=== PATIENT | female | born 1985 | race Caucasian/White ===

== ENCOUNTER 2025-01-15 11:30 | Inpatient (IN) | payer MEDICAID, SELFPAY ==
[2025-01-15] VITALS (52 sets, daily range): BP systolic 78–121; BP diastolic 45–81; PULSE 74–147; RESP 14–100; TEMP 36.4–37.4; O2SAT 87–100; BMI 22.6
--- NOTE | 2025-01-15 11:48 | PD.EDADULT ---
ED General RME/HPI General Chief complaint: Nausea/Vomiting/Diarrhea Stated complaint: WEAKNESS Time Seen by Provider: 01/15/25 11:39 Arrival date/time: 01/15/25 11:30 Related Data Previous Rx's ?Medication ?Instructions ?Recorded insulin lispro 100 unit/mL 15 unit (0.15 mL) subcut TID 30 07/17/22 subcutaneous pen (Admelog SoloStar days #15 mL U-100 Insulin lispro) pen needle, diabetic 32 gauge x #150 ea 07/17/2206/22 pen needle, diabetic 32 gauge x #100 ea 07/17/22 (Pen Needle) blood sugar diagnostic (Blood #50 ea 01/15/23 Glucose Test strips) blood-glucose meter (Blood Glucose #1 ea 01/15/23 Monitoring kit) blood-glucose sensor (FreeStyle #2 ea 01/15/23 Shannon 3 Sensor device) insulin glargine 100 unit/mL (3 25 unit (0.25 mL) subcut BID #15 mL 01/15/23 mL) subcutaneous pen (Basaglar KwikPen U-100 Insulin) insulin lispro 100 unit/mL 15 unit (0.15 mL) subcut TID #15 mL 01/15/23 subcutaneous pen (Admelog SoloStar U-100 Insulin lispro) lancets 28 gauge (Acti-Enrrique #100 ea 01/15/23 Lancets) pen needle, diabetic 29 gauge x #100 ea 01/15/23 1/2 (1st Tier Unifine Pentips) Allergies Allergy/AdvReac Type Severity Reaction Status Date / Time adhesive tape Allergy Severe Hives Verified 06/26/23 15:17 ED Exam Narrative Physical exam: Physical Exam: GENERAL: Awake, answering questions appropriately, appears disheveled and poor hygiene HEENT: NC/AT. Moist mucosa. PERRLA/EOMI. Poor dentition, yellow dark bilious vomiting noted in oropharynx and dried up around mouth. CARDIO: Heart RRR, no obvious murmurs, no JVD. PULM: No coughing or visible SOB. Lungs CTA B/L. GI: Abdomen soft, tender to palpation diffusely with some guarding but no rigidity noted. Borborygmi apparent SKIN/MSK/EXT: No wounds/discoloration/rashes/edema/amputations. +Pedal pulses present B/L. NEURO: Oriented x3, Moves extremities x4, no focal neurologic deficits noted. Course Quality Measures none Orders Category Date Time Status Bedside Blood Glucose NOW Care 01/15/25 11:34 Active COVID-19 Screening Questionnaire NOW Care 01/15/25 12:46 Active Adult Health Clinical Nurse Specialist STAT Care 01/15/25 11:31 Active Continuous Pulse Oximetry STAT Care 01/15/25 11:31 Completed DKA Protocol QSHIFT Care 01/15/25 12:40 Active Decision to Admit X1 Care 01/15/25 12:46 Completed Insert IV STAT Care 01/15/25 11:31 Active Intake and Output Routine Care 01/15/25 12:40 Ordered NPO STAT Care 01/15/25 11:31 Active Consult to Gastroenterology Stat Cons 01/15/25 11:32 Ordered Referral Registered Dietitian Routine Cons 01/15/25 12:40 Active ABG [Arterial Blood Gas] Stat Lab 01/15/25 12:08 Completed Ammonia Stat Lab 01/15/25 11:55 Completed Beta Hydroxybutyrate Stat Lab 01/15/25 11:55 Results CBC Stat Lab 01/15/25 11:55 Completed Comprehensive Metabolic Panel Stat Lab 01/15/25 11:55 Results Glycohemoglobin w (eAG) Stat Lab 01/15/25 12:40 Ordered HCG Qualitative,Urine Stat Lab 01/15/25 11:32 Ordered HCG Titer if Positive Stat Lab 01/15/25 11:55 Results Lipase Stat Lab 01/15/25 11:55 Results Magnesium Stat Lab 01/15/25 11:55 Results Partial Thromboplastin Time Stat Lab 01/15/25 11:55 Completed Prothrombin Time with INR Stat Lab 01/15/25 11:55 Completed Troponin I Stat Lab 01/15/25 11:55 Results Urinalysis, C/S if Indicated Stat Lab 01/15/25 11:32 Ordered Dextrose 5%-Lactated Ringers [D5-Lr] 1,000 ml Med 01/15/25 12:40 Active Pot Chl Additive [KCl Additive] 20 meq IV 250 mls/hr Dextrose 5%-Lactated Ringers [D5-Lr] 1,000 ml Med 01/15/25 12:40 Active Pot Chl Additive [KCl Additive] 40 meq IV 250 mls/hr Dextrose 5%-Lactated Ringers [D5-Lr] 1,000 ml Med 01/15/25 12:40 Active IV 250 mls/hr Dextrose 50% Syr [D50w Syringe Abboject] Med 01/15/25 12:40 Active 25 ml IV PRNMRX1 PRN Magnesium Sulfate 2 GM Ivpb [Magnesium Sulfate Ivpb] Med 01/15/25 12:40 Active 2 gm in 50 ml IV 25 mls/hr POT PHOS 15 mMol in NS 250 ML [Pot Phos 15 mMol in NS Med 01/15/25 12:40 Active 250 ml] 15 mmol in 250 ml IV PRN POTASSIUM CHL 10 mEq IVPB [Kcl Ivpb] Med 01/15/25 12:40 Active 10 meq in 100 ml IV 100 mls/hr POTASSIUM CHL 10 mEq IVPB [Kcl Ivpb] Med 01/15/25 12:40 Active 10 meq in 100 ml IV PRN Pantoprazole Inj [Protonix Inj] Med 01/15/25 11:31 Discontinued 40 mg IVP X1 ONE Pre-Mixed [Pre-mixed Bag] 1 bag Med 01/15/25 12:40 Active Insulin Reg 100 Units/100 ml [Myxredlin] 100 unit IV 0.1 unit/kg/hr Ringers Lactated 1000 ml [Lactated Ringers] 1,000 ml Med 01/15/25 12:40 Active Pot Chl Additive [KCl Additive] 20 meq IV 250 mls/hr Ringers Lactated 1000 ml [Lactated Ringers] 1,000 ml Med 01/15/25 12:40 Active Pot Chl Additive [KCl Additive] 40 meq IV 250 mls/hr Ringers Lactated 1000 ml [Lactated Ringers] 1,000 ml Med 01/15/25 12:40 Active IV 250 mls/hr Ringers Lactated 1000 ml [Lactated Ringers] 1,000 ml Med 01/15/25 11:33 Discontinued IV 999 mls/hr Ringers Lactated 1000 ml [Lactated Ringers] 1,000 ml Med 01/15/25 12:34 Active IV 999 mls/hr Ringers Lactated 1000 ml [Lactated Ringers] 1,000 ml Med 01/15/25 12:42 Active IV 999 mls/hr Sodium Bicarb 8.4% 50ml Vial* Med 01/15/25 12:30 Discontinued 50 meq IV X1 ONE Sodium Bicarb 8.4% SYR Med 01/15/25 12:40 Active 50 ml IV Q4HR PRN Sodium Chloride 0.9% 250 ml [Ns] 250 ml Med 01/15/25 12:40 Active Sod Phos Additive [NaPhos Additive] 15 mmol IV 62.5 mls/hr Oxygen Delivery STAT RT 01/15/25 11:31 Active Vital Signs Vital signs: Vital Signs Pulse Rate 125 H 01/15/25 11:31 Respiratory Rate 24 H 01/15/25 11:31 Discharge Plan Plan Patient Disposition: Admit Acute Care w/in Hospital Patient condition on transfer: Stable Prescriptions/Referrals Prescriptions/Med Rec: No Action (DME) pen needle, diabetic [Pen Needle] 32 gauge x 5/32 needle See Rx Instructions .Route Qty: 100 2RF Rx Instructions: As directed insulin lispro [Admelog SoloStar U-100 Insulin] 100 unit/mL insulin pen 15 unit subcut TID 30 Days Qty: 15 2RF Rx Instructions: 15 units with every meal 3 times daily (DME) pen needle, diabetic 32 gauge x 5/16 needle See Rx Instructions .Route Qty: 150 2RF Rx Instructions: As directed (DME) FreeStyle Shannon 3 Sensor Device See Rx Instructions .Route Qty: 2 0RF Rx Instructions: As directed (DME) blood-glucose meter [Blood Glucose Monitoring] Kit See Rx Instructions .Route Qty: 1 0RF Rx Instructions: As directed (DME) Blood Glucose Test Strip See Rx Instructions .Route Qty: 50 1RF Rx Instructions: As directed (DME) lancets [Acti-Enrrique Lancets] 28 gauge misc See Rx Instructions .Route Qty: 100 0RF Rx Instructions: As directed (DME) pen needle, diabetic [1st Tier Unifine Pentips] 29 gauge x 1/2 needle See Rx Instructions .Route Qty: 100 0RF Rx Instructions: As directed insulin glargine [Basaglar KwikPen U-100 Insulin] 100 unit/mL (3 mL) insulin pen 25 unit subcut BID Qty: 15 0RF insulin lispro [Admelog SoloStar U-100 Insulin] 100 unit/mL insulin pen 15 unit subcut TID Qty: 15 0RF Referrals: No Primary/Family,Physician [Primary Care Provider] - In 1 week Problem List Clinical Impression: DKA (diabetic ketoacidoses) Patient/Caregiver Discharge Instructions Print Language: Sinhala Stand Alone Forms: [employer] Info., Patient Portal Info Letter MDM Narrative MDM hospital course (for use when minimal MDM required): HPI: Past medical history of poorly controlled type 2 diabetes on insulin with multiple admissions in the past for diabetic ketoacidosis, multiple gestations with multiple miscarriages presenting to the ED on 01/15 with confusion and dark bilious vomiting. History largely obtained from EMS which reported that the patient was at home with and apparently started having increased confusion with dark bilious vomiting. She is unsure exactly if she is a type I or type II diabetic but does state that she uses insulin daily. She states that the vomiting started earlier today and have not stopped; she has vomited around 5 or 6 times. She denies having any liver disease at this time history difficult to obtain as she is actively nauseous with vomiting spells. On examination please refer to the physical exam above; patient presented normotensive 110/68, tachycardic with a heart rate of 125, respiratory rate of 24, afebrile satting 100 on room air. Labs are pending at this time. #Diabetic ketoacidosis #Probable upper GI bleed, hemoglobin stable IV Protonix 40 2 large-bore IVs with 2 L of LR started; 3L ordered Patient appears to be in DKA based on lab findings; pH 7.14 - one amp of Bicarb given Insulin gtt started with DKA protocol Patient will be n.p.o. Will contact GI for possible need for endoscopy [facility] attending made aware and has accepted the patient Patient seen and assessed with attending Dr. London Yoo, DO PGY-2 Internal Medicine - [facility] Medication Administration(s) Medication Administration History Dextrose (Dextrose 50%-Water Inj 50 Ml Syringe) 25 ml IV PRNMRX1 PRN PRN Reason: Blood Sugar - Low Lactated Ringer's (Lactated Ringers) 1,000 mls @ 999 mls/hr IV .Q1H1M ONE Stop: 01/15/25 13:34 Last Admin: 01/15/25 12:05 Dose: 999 mls/hr Documented By: ER Potassium Chloride 20 meq/ (Dextrose/Lactated Ringer's) 1,010 mls @ 250 mls/hr IV .Q4H3M PRN PRN Reason: K LEVEL 3.3 TO 5.3 mM/L Stop: 02/14/25 12:39 Potassium Chloride 40 meq/ (Dextrose/Lactated Ringer's) 1,020 mls @ 250 mls/hr IV .Q4H5M PRN PRN Reason: K LEVEL < 3.3mM/L Stop: 02/14/25 12:39 Potassium Chloride (Kcl Ivpb) 10 meq in 100 mls @ 100 mls/hr IV .Q1H PRN PRN Reason: IF POTASSIUM LESS THAN 3.3 Stop: 02/14/25 12:39 Magnesium Sulfate (Magnesium Sulfate Ivpb) 2 gm in 50 mls @ 25 mls/hr IV .Q2H PRN PRN Reason: PER DKA PROTOCOL Stop: 02/14/25 12:39 Insulin Human Regular 100 unit (/ IV Miscellaneous Supplies) 100 mls @ 6.35 mls/hr IV .[id number] PRN; Protocol PRN Reason: PER PROTOCOL Stop: 02/14/25 12:39 Dextrose/Lactated Ringer's (D5-Lr) 1,000 mls @ 250 mls/hr IV .Q4H PRN PRN Reason: PER PROTOCOL Stop: 02/14/25 12:39 Lactated Ringer's (Lactated Ringers) 1,000 mls @ 250 mls/hr IV .Q4H PRN PRN Reason: PER PROTOCOL Stop: 01/16/25 12:39 Potassium Chloride 20 meq/ (Lactated Ringer's) 1,010 mls @ 250 mls/hr IV .Q4H3M PRN PRN Reason: K LEVEL 3.3 TO 5.3mM/L Stop: 02/14/25 12:39 Potassium Chloride 40 meq/ (Lactated Ringer's) 1,020 mls @ 250 mls/hr IV .Q4H5M PRN PRN Reason: K LEVEL < 3.3 mM/L Stop: 02/14/25 12:39 Potassium Chloride (Kcl Ivpb) 10 meq in 100 mls @ 50 mls/hr IV PRN PRN PRN Reason: K LEVEL 3.3 to 5.3 & BG > 200 Stop: 02/14/25 12:39 Potassium Phosphate (Pot Phos 15 Mmol In Ns 250 Ml) 15 mmol in 250 mls @ 62.5 mls/hr IV PRN PRN PRN Reason: Phosphate <= 1mg/dL Stop: 02/14/25 12:39 Sodium Phosphate 15 mmol/ (Sodium Chloride) 255 mls @ 62.5 mls/hr IV .Q4H5M PRN PRN Reason: Phosphate <= 1mg/dL and K> than 5.3 Stop: 02/14/25 12:39 Lactated Ringer's (Lactated Ringers) 1,000 mls @ 999 mls/hr IV .Q1H1M ONE Stop: 01/15/25 13:42 Sodium Bicarbonate (Sodium Bicarb Inj 8.4% Syr 50 Ml Syringe) 50 ml IV Q4HR PRN PRN Reason: For ph <= to 7.0 Stop: 02/14/25 12:39 Discontinued Medications Lactated Ringer's (Lactated Ringers) 1,000 mls @ 999 mls/hr IV .Q1H1M ONE Stop: 01/15/25 12:33 Last Admin: 01/15/25 12:05 Dose: 999 mls/hr Documented By: ER Pantoprazole Sodium (Pantoprazole Inj 40 Mg Vial) 40 mg IVP X1 ONE Stop: 01/15/25 11:32 Last Admin: 01/15/25 12:02 Dose: 40 mg Documented By: ER Sodium Bicarbonate (Sodium Bicarb Inj 8.4% 1 Meq/Ml 50 Ml Vial) 50 meq IV X1 ONE Stop: 01/15/25 12:31
--- NOTE | 2025-01-15 11:56 | PC.NURSE ---
Patient BIBA from home stating that she woke with N/V. Patient is type 1 Dm and FSBS read [facility], and in ED. Placed on rn cardiac rehab, ST 125bpm. Patient actively vomiting at this time. Patient is A&O X4 following directions at this time.
[2025-01-15 12:04] LABS: Basophils # (Auto) 0.0 Thou/mm3 (0.0-0.2); Basophils % (Auto) 0 % (0-2.5); Eosinophils # (Auto) 0.0 Thou/mm3 (0.0-0.5); Eosinophils % (Auto) 0 % (0-10); Hematocrit 43.6 % (36.0-46.0); Hemoglobin 14.2 g/dL (12.0-16.0); Immature Granulocytes Auto 0.05 Thou/mm3 (0.00-0.00); Lymphocytes # (Auto) 1.2 Thou/mm3 (1.0-4.8); Lymphocytes % (Auto) 10 % (10-50); Mean Corpuscular HGB Conc 32.6 g/dl (31.0-37.0); Mean Corpuscular Hemoglobin 30.5 pg (25.0-35.0); Mean Corpuscular Volume 94 fL (80-100); Monocytes # (Auto) 0.3 Thou/mm3 (0.0-0.8); Monocytes % (Auto) 2 % (0-12); Neutrophils # (Auto) 10.1 Thou/mm3 (1.8-7.7); Neutrophils % (Auto) 86 % (37-80); Nucleated Red Blood Cell # 0.00 Thou/mm3 (0.00-0.00); Nucleated Red Blood Cell % 0 /100 WBC (0); Platelet Count 330 Thou/mm3 (140-440); RDW Standard Deviation 45.6 fL (36.4-46.3); Red Blood Count 4.65 Miln/mm3 (4.00-5.20); White Blood Count 11.7 Thou/mm3 (3.6-11.0)
[2025-01-15] MEDS: RINGERS LACTATED 1000 ML 1,000 ML 999 ML IV ×5 (12:05→21:14)
[2025-01-15 12:10] LABS: Beta Hydroxybutyrate 5.4 mmol/L (<0.6)
[2025-01-15 12:17] LABS: Base Excess -22 (-3-3); HCO3 5 mEq/L (20-26); Inspired Oxygen, FIO2 21 %; O2 Saturation 98 % (91-98); PCO2 16 mmHg (32.0-48.0); PO2 126 mmHg (83-108)
[2025-01-15 12:23] LABS: INR 0.9 (0.9-1.3); Partial Thromboplastin Time 22.0 Seconds (22.0-36.0); Prothrombin Time 10.0 Seconds (9.0-12.2)
[2025-01-15 12:27] LABS: Allen Test Performed/OK; Puncture Site Right Radial
[2025-01-15 12:28] LABS: pH, Arterial 7.14 (7.35-7.45)
[2025-01-15 12:32] LABS: Ammonia 12 uMol/L (11-32)
[2025-01-15 12:34] LABS: Alanine Aminotransferase 20 U/L (10-49); Albumin, Serum 4.3 gm/dL (3.5-5.0); Albumin/Globulin Ratio 1.3 (1.2-2.2); Alkaline Phosphatase 176 U/L (46-116); Anion Gap 30 (7-16); Aspartate Amino Transferase 21 U/L (0-34); BUN/Creatinine Ratio 15 Ratio (12-20); Bilirubin,Total 0.5 mg/dL (0.3-1.2); Blood Urea Nitrogen 25 mg/dL (9-23); Calcium 9.2 mg/dL (8.3-10.6); Calcium (Corrected) 9.2 mg/dL (8.5-10.1); Chloride 94 mMol/L (98-107); Creatinine (Component) 1.7 mg/dL (0.6-1.3); Estimated Creatinine Clearance 41.6 mL/min (>60); Globulin 3.3 gm/dL (2.3-3.5); Lipase 27 U/L (12-53); Magnesium 2.2 mg/dL (1.6-2.6); Potassium 5.6 mMol/L (3.4-5.1); Sodium 134 mMol/L (136-145); Total Protein 7.6 gm/dL (5.7-8.2); Troponin I < 0.002 ng/mL (0.0-0.045); eGFR 39 See Note
[2025-01-15 12:36] LABS: Carbon Dioxide < 10.0 mMol/L (20.0-31.0)
[2025-01-15 12:44] LABS: Osmolality,Calculated 307 (275-295)
[2025-01-15 13:02] LABS: Glucose 734 mg/dL (74-106)
[2025-01-15 13:16] LABS: Glucose Estimated Average 326 mg/dL (80-131); Hemoglobin A1C 13.0 % Hgb (4.8-6.0)
[2025-01-15 13:17] LABS: HCG Titer if Positive Negative
[2025-01-15] MEDS: INSULIN REG 100 UNITS/100 ML 100 UNIT in PRE-MIXED 1 BAG 6.35 UNIT IV (13:23)
--- NOTE | 2025-01-15 13:26 | ESHP_ITS ---
<Statement entered by Lilly Mclaughlin MD - 01/15/25 18:29> I have reviewed the note and agree with the resident's assessment & plan with exceptions as below. I have personally reviewed labs, imaging, home meds/prior records, examined the patient, formulated and discussed management plan with the IM team. Neurology: #Acute Encephalopathy DDx: Metabolic (related to DKA), infectious, Dx: CMP, ABG Rx: Treat underlying metabolic issue (See Endo Section), serial CMP, ABG RRX: Consider Head CT if patient's condition does not improve or worsens Cardiology: #Sinus Tachycardia DDx: Likely related to pain and DKA Dx: EKG (Stable) and Troponin (negative) Rx: Treat underlying problem (See Endo and Renal) RRX: If patient's condition does not improve Pulmonary: #Tachypnea, 2/2 metabolic acidosis DDx: Compensation for metabolic acidosis Dx: Vitals, physical exam Rx: Treat underlying problem (See Endo and Renal) RRX: If patient's condition does not improve Gastrointestinal: #Nausea 2/2 DKA Plan: PRN Zofran Nephrology: #HAGMA #Metabolic acidosis with respiratory alkalosis DDx: DKA, Lactic acidosis AG 30, likely multifactorial Winter's Formula: 14-18 expected CO2; acutal CO2 16 -> within range Delta Delta: (30-12)/(24-5)= 0.94 -> HAGMA Dx: CMP, ABG (pH 7.14), U/A, A1c (13), Beta-Hydroxybutyrate (5.4) Rx: Insulin Drip 0.1 unit/kg, serial renal panels with phosphorous, glucose q1h checks RRX: If not enough insulin not given or gap doesn't close #Lactic acidosis type A vs B DDx: Infectious, Type A/B (Hypoxia, Medications, DKA) Dx: CMP, Lactate, CXR, U/A, UDS Rx: IV Lactated Ringer Boluses, Trend Lactic Acid RRX: If we do not find source of lactic acidosis #ADEEL DDx: Likely prerenal, however can be intrinsic or post renal Dx: CMP, U/A Rx: IV Lactated Ringer Boluses, Trend CMP RRX: If we underlying problem is not fixed Genitourinary: Stable Hematology: #Leukocytosis Likely reactive or related to DKA However, infection cannot be ruled out at this time. Plan: Trend CBC Endocrine: #DKA DDx: Hyperglycemia, HHS A1c 13; Unsure if type I or type II, however is insulin dependent Dx: A1c (13), CMP, ABG Rx:Insulin Drip 0.1 unit/kg, serial renal panels with phosphorous, glucose q1h checks RRX: If not insulin is given Infectious Disease: Stable at this time, however pt could have underlying infection Plan: UDS, U/A w/culture if indicated, CXR Lilly Mclaughlin, PGY-2 Internal Medicine Documentation for date of: 01/15/25 HPI History of Present Illness Chief complaint: DKA, Adominal pain and nausea and vomiting History of present illness: Ms. Dominguez is a 39 year old woman with a pmh of T1 v T2 DM, that was diagnosed ~7 years ago, on insulin, who was BIBA from home afte 1-2 days of not feeling well . She states that she woke up today and she had nausea and vomiting that was billeous and nonbloody, no coffee grounds. patient is slightly encephalopathic, and is a poor historian, no family at bedside to provide collateral history She reports not taking her insulin because she was feeling ill. PMH: Insulin depended DM, on insulin at home Surgical: C section, Hernia repair, Tubal ligation Social Hx: Lives in [place] with her partner ana ho and their children. She denies any etoh use or tobacco use or recreational drug use ED course: given insulin drip, and 2L LR, and pantoprazole VS: afebrile, HR 125, bp 110/68, satting 100 on RA Labs notable for wbc 11.7, Hgb stable, coags wnl, abg ph 7.14, but531, hco3<10, trop wnl, lipase wnl, Cr 1.7, K 5.6, glucose 734, Na corrected 144, A1c 13, beta hydroxy butrate 5.4, LA 4.1, pending UA and U tox, Exam Vital Signs Temp Pulse Resp BP Pulse Ox O2 Del Method 97.9 F 126 H 25 H 110/68 100 Room Air 01/15/25 11:38 01/15/25 11:38 01/15/25 11:38 01/15/25 11:38 01/15/25 11:38 01/15/25 11:38 Narrative Exam somnlent yet arousable to voice and touch, alert and oriented x3, discheveled, in moderate distress PEERL, Mouth with poor dentition, and teeth stained with billeous emesis on teeth, mucus membranes dry heart, sinus tachycardia, no murmors on auscultation lungs, expiratory wheezing, and inspiratory ronchous sounds. no stridor, tachypnic, satting well on room air, abd soft nontender, non distended, + bowel sounds, and infraumbilical well healed surgical incision and laproscopic incision Extremities, cold, pulses palpable Results: Labs 01/15/25 11:55 01/15/25 15:35 Labs: Short CBC 01/15/25 Range/Units 11:55 WBC 11.7 H (3.6-11.0) Thou/mm3 Hgb 14.2 (12.0-16.0) g/dL Hct 43.6 (36.0-46.0) % Plt Count 330 (140-440) Thou/mm3 BMP 01/15/25 11:55 Sodium 134 L Potassium 5.6 H Chloride 94 L Carbon Dioxide < 10.0 L* BUN 25 H Creatinine 1.7 H Glucose 734 H* Calcium 9.2 Cardiac Enzymes 01/15/25 Range/Units 11:55 Troponin I < 0.002 (0.0-0.045) ng/mL Liver Function 01/15/25 Range/Units 11:55 Total Bilirubin 0.5 (0.3-1.2) mg/dL AST 21 (0-34) U/L ALT 20 (10-49) U/L Alkaline Phosphatase 176 H (46-116) U/L Albumin 4.3 (3.5-5.0) gm/dL ABG Interpretation ABG results: 01/15/25 12:08 ABG pH 7.14 L* ABG pCO2 16 L* ABG pO2 126 H ABG HCO3 5 L* ABG O2 Saturation 98 ABG Base Excess -22 L Quality Measures Quality Measures VTE prophylaxis Medications Home Medications and Allergies Allergies Allergy/AdvReac Type Severity Reaction Status Date / Time adhesive tape Allergy Severe Hives Verified 06/26/23 15:17 Visit Medications Dextrose (Dextrose 50%-Water Inj 50 Ml Syringe) 25 ml IV PRNMRX1 PRN PRN Reason: Blood Sugar - Low Lactated Ringer's (Lactated Ringers) 1,000 mls @ 999 mls/hr IV .Q1H1M ONE Stop: 01/15/25 13:34 Last Admin: 01/15/25 12:05 Dose: 999 mls/hr Potassium Chloride 20 meq/ (Dextrose/Lactated Ringer's) 1,010 mls @ 250 mls/hr IV .Q4H3M PRN PRN Reason: K LEVEL 3.3 TO 5.3 mM/L Stop: 02/14/25 12:39 Potassium Chloride 40 meq/ (Dextrose/Lactated Ringer's) 1,020 mls @ 250 mls/hr IV .Q4H5M PRN PRN Reason: K LEVEL < 3.3mM/L Stop: 02/14/25 12:39 Potassium Chloride (Kcl Ivpb) 10 meq in 100 mls @ 100 mls/hr IV .Q1H PRN PRN Reason: IF POTASSIUM LESS THAN 3.3 Stop: 02/14/25 12:39 Magnesium Sulfate (Magnesium Sulfate Ivpb) 2 gm in 50 mls @ 25 mls/hr IV .Q2H PRN PRN Reason: PER DKA PROTOCOL Stop: 02/14/25 12:39 Insulin Human Regular 100 unit (/ IV Miscellaneous Supplies) 100 mls @ 6.35 mls/hr IV .[id number] PRN; Protocol PRN Reason: PER PROTOCOL Stop: 02/14/25 12:39 Dextrose/Lactated Ringer's (D5-Lr) 1,000 mls @ 250 mls/hr IV .Q4H PRN PRN Reason: PER PROTOCOL Stop: 02/14/25 12:39 Lactated Ringer's (Lactated Ringers) 1,000 mls @ 250 mls/hr IV .Q4H PRN PRN Reason: PER PROTOCOL Stop: 01/16/25 12:39 Potassium Chloride 20 meq/ (Lactated Ringer's) 1,010 mls @ 250 mls/hr IV .Q4H3M PRN PRN Reason: K LEVEL 3.3 TO 5.3mM/L Stop: 02/14/25 12:39 Potassium Chloride 40 meq/ (Lactated Ringer's) 1,020 mls @ 250 mls/hr IV .Q4H5M PRN PRN Reason: K LEVEL < 3.3 mM/L Stop: 02/14/25 12:39 Potassium Chloride (Kcl Ivpb) 10 meq in 100 mls @ 50 mls/hr IV PRN PRN PRN Reason: K LEVEL 3.3 to 5.3 & BG > 200 Stop: 02/14/25 12:39 Potassium Phosphate (Pot Phos 15 Mmol In Ns 250 Ml) 15 mmol in 250 mls @ 62.5 mls/hr IV PRN PRN PRN Reason: Phosphate <= 1mg/dL Stop: 02/14/25 12:39 Sodium Phosphate 15 mmol/ (Sodium Chloride) 255 mls @ 62.5 mls/hr IV .Q4H5M PRN PRN Reason: Phosphate <= 1mg/dL and K> than 5.3 Stop: 02/14/25 12:39 Lactated Ringer's (Lactated Ringers) 1,000 mls @ 999 mls/hr IV .Q1H1M ONE Stop: 01/15/25 13:42 Sodium Bicarbonate (Sodium Bicarb Inj 8.4% Syr 50 Ml Syringe) 50 ml IV Q4HR PRN PRN Reason: For ph <= to 7.0 Stop: 02/14/25 12:39 Discontinued Medications Lactated Ringer's (Lactated Ringers) 1,000 mls @ 999 mls/hr IV .Q1H1M ONE Stop: 01/15/25 12:33 Last Admin: 01/15/25 12:05 Dose: 999 mls/hr Pantoprazole Sodium (Pantoprazole Inj 40 Mg Vial) 40 mg IVP X1 ONE Stop: 01/15/25 11:32 Last Admin: 01/15/25 12:02 Dose: 40 mg Sodium Bicarbonate (Sodium Bicarb Inj 8.4% 1 Meq/Ml 50 Ml Vial) 50 meq IV X1 ONE Stop: 01/15/25 12:31 Last Admin: 01/15/25 13:21 Dose: Not Given Assessment & Plan Plan Ms. Dominguez is a 39 year old woman with a history of insulin dependent DM, poorly controlled who was BIBA for acute encephalopathy and elevated blood glucose to 700s, found to have elevated beta hydroxy butrate and LA, admtited to the icu for managment of DKA Neurology: #Acute Encephalopathy DDx: Metabolic (related to DKA), infectious, Dx: CMP, ABG Rx: Treat underlying metabolic issue (See Endo Section), serial CMP, ABG RRX: Consider Head CT if patient's condition does not improve or worsens Cardiology: #Sinus Tachycardia DDx: Likely related to pain and DKA Dx: EKG (Stable) and Troponin (negative) Rx: Treat underlying problem (See Endo and Renal) RRX: If patient's condition does not improve Pulmonary: #Tachypnea, 2/2 metabolic acidosis DDx: Compensation for metabolic acidosis Dx: Vitals, physical exam Rx: Treat underlying problem (See Endo and Renal) RRX: If patient's condition does not improve ?Aspiration PNA vs pneumonitis DDx: in setting of lethargy and encephalopathy likely 2/2 dka, patient with persistent emesis, could have aspirated. Dx: Vitals, physical exam, CBC, serial CXR Rx: consider abx RRX: If patient's condition does not improve Gastrointestinal: #Nausea + emesis 2/2 DKA Plan: PRN John Nephrology: #NICOLETTEMA #Metabolic acidosis with respiratory alkalosis DDx: DKA, Lactic acidosis ( consider GOLD CORONEL) Ab.14, 16 AG 30 Winter's Formula: (1.5*Hco3)+ 8)= 1.5*5)+8= expected pco2 +/-2 [13.5-17.5] expected CO2; acutal CO2 16 -> within range Delta Delta: (30-12)/(24-5)= 0.94 -> pure metabolic acidosis Dx: CMP, ABG (pH 7.14), U/A, A1c (13), Beta-Hydroxybutyrate (5.4), Rx: Insulin Drip 0.1 unit/kg, serial renal panels with phosphorous q4hr , glucose q1h checks RRX: If not enough insulin not given or gap doesn't close #Lactic acidosis type A vs B DDx: Infectious, Type A/B (Hypoxia, Medications, DKA) Dx: CMP, Lactate, CXR, U/A, UDS Rx: IV Lactated Ringer Boluses, Trend Lactic Acid RRX: If we do not find source of lactic acidosis #ADEEL DDx: Likely prerenal, in setting of poor po intake, and GI lossis 2/2 emesis Dx: CMP, U/A Rx: IV Lactated Ringer Boluses, Trend CMP RRX: If we underlying problem is not fixed Genitourinary: Stable, betancourt placed pending utox, and UA Hematology: #Leukocytosis Likely reactive or related to DKA Plan: Trend CBC Endocrine: #DKA DDx: Hyperglycemia, HHS (blood glucose >600) A1c 13; Unsure if type I or type II, however is insulin dependent Dx: A1c (13), CMP, ABG Rx:Insulin Drip 0.1 unit/kg, serial renal panels with phosphorous, glucose q1h checks RRX: If not insulin is given Infectious Disease: Stable at this time ICU Health maintenance: Dispo: admitted to the ICU for managment of DKA Diet: NPO DVT ppx: Heparin 5000 BID GI ppx: not indicated IV lines: PIV Arterial line: none Betancourt: yes Code status: Full Case disclosed with my senior resident Dr. Mclaughlin and my Attending Dr. Orlando Cote MD PGY1
--- NOTE | 2025-01-15 13:48 | XR_ITS ---
January 15, 2025, 1414 hours, comparison June 26, 2023 INDICATION: Shortness of breath today. FINDINGS: Normal heart size Lungs are clear. Osseous structures are intact IMPRESSION: No active disease
[2025-01-15 13:49] LABS: Lactate (Lactic Acid) 4.1 mMol/L (0.4-2.0)
--- NOTE | 2025-01-15 14:06 | PD.INTPROG ---
Documentation for date of: 01/15/25 Subjective Subjective Interval history: This is a 39-year-old female who is brought into the ER today by EMS for general malaise and intractable nausea and vomiting. The patient states that she started to become ill yesterday. Of note the patient is a very poor historian. Apparently prior to yesterday she was feeling well. She did not take her insulin today since she was unable to tolerate p.o. She began with nausea and vomiting yesterday evening and continued this morning. There is question of hematemesis per the ER. On arrival to the ED she was found to be tachypneic, hypotensive, tachycardic and agitated. A peripheral line was established and labs were obtained. Labs were significant for a metabolic acidosis and an anion gap of 30. The patient has a history of diabetes. The patient's beta hydroxy was found to be elevated and the ICU was contacted for admission for probable DKA. The patient herself complains of abdominal pain and right shoulder pain. It appears that the abdominal pain is related to her nausea vomiting and retching. In the ER she has received 2 L of IV fluids. A 3rd L is ordered along with an insulin drip. Critical Care Note Critical care time (min.): 50 Exam Vital Signs Temp Pulse Resp BP Pulse Ox O2 Del Method 97.6 F 126 H 21 H 99/61 100 Room Air 01/15/25 13:38 01/15/25 13:38 01/15/25 13:38 01/15/25 13:38 01/15/25 13:38 01/15/25 13:38 Narrative Exam General-unkempt in appearance, awake, agitated, restless, normal body habitus HEENT-normocephalic, atraumatic, sclera icteric, pupils are equal reactive responding to light, EOMI, oral mucosa is extremely dry, poor dentition, dry brown oral debris present Chest-lungs clear to auscultation bilaterally, heart regular rhythmic, no bruits or murmurs auscultated, increased work of breathing, pain on palpation of the right chest wall, no visible lesions seen Abdomen-flat, soft, nontender, no rebound, no guarding, bowel sounds present, infraumbilical well-healed surgical scar Extremities-no edema, no mottling, pulses palpable, feet and hands are cool to touch, no focal neurological deficits Physical Exam Completion Physical Exam Complete?: Yes 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 Labs 01/16/25 02:14 01/16/25 06:25 Labs: Laboratory Results - last 24 hr 01/15/25 01/15/25 01/15/25 11:55 12:08 13:27 WBC 11.7 H RBC 4.65 Hgb 14.2 Hct 43.6 MCV 94 MCH 30.5 MCHC 32.6 RDW Std Deviation 45.6 Plt Count 330 Neut % (Auto) 86 H Lymph % (Auto) 10 [place] % (Auto) 2 Eos % (Auto) 0 Baso % (Auto) 0 Neut # (Auto) 10.1 H Lymph # (Auto) 1.2 [place] # (Auto) 0.3 Eos # (Auto) 0.0 Baso # (Auto) 0.0 Immature Gran # (Auto) 0.05 H Absolute Nucleated RBC 0.00 Immature Gran % 0 Nucleated RBC % 0 PT 10.0 INR 0.9 APTT 22.0 Puncture Site Right Radial ABG pH 7.14 L* ABG pCO2 16 L* ABG pO2 126 H ABG HCO3 5 L* ABG O2 Saturation 98 ABG Base Excess -22 L FiO2 21 Sodium 134 L Potassium 5.6 H Chloride 94 L Carbon Dioxide < 10.0 L* Anion Gap 30 H BUN 25 H Creatinine 1.7 H Estim Creat Clear Calc 41.6 L eGFR 39 L BUN/Creatinine Ratio 15 Glucose 734 H* Estimated Ave Glu mg/dL 326 H Hemoglobin A1c 13.0 H Calculated Osmolality 307 H Lactic Acid 4.1 H* Calcium 9.2 Corrected Calcium 9.2 Magnesium 2.2 Total Bilirubin 0.5 AST 21 ALT 20 Alkaline Phosphatase 176 H Ammonia 12 Troponin I < 0.002 Total Protein 7.6 Albumin 4.3 Globulin 3.3 Albumin/Globulin Ratio 1.3 Lipase 27 Beta-Hydroxybutyrate/Acetoacetate 5.4 H HCG (Qual) Negative Assessment & Plan Additional Assessment Additional Assessment: In summary this is a 39-year-old female admitted to the ICU for 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 Follow-up on chest x-ray Renal Pseudohyponatremia-in the setting of hyperglycemia with a glucose above 700 Hyperkalemia-anticipate improvement with IV fluids and insulin drip Anion gap metabolic acidosis-patient's anion gap is 30 and a delta delta suggest that this is a pure anion gap metabolic acidosis. Her ABG shows a pH of 7.14 with a pCO2 of 16. Per Powell formula she has appropriate respiratory compensation for her metabolic acidosis. Patient's beta hydroxy is elevated at 5.4 however this does not completely explain the patient's anion gap of 30. It is likely secondary to both her DKA as well as a lactic acidosis. She also does have an ADEEL which may be a small contribution. Acute kidney injury-likely prerenal in nature and secondary to volume depletion. Provide IV fluids and monitor I's and O's, avoid nephrotoxins. GI Intractable nausea and vomiting-as needed Zofran and n.p.o. for now Endo DKA-start on DKA protocol with labs every 4 hours, insulin drip and IV fluids. Once anion gap is closed x 2 can transition to subcutaneous insulin. Patient has history of poor compliance Heme Leukocytosis-likely reactive in nature DVT prophylaxis-Lovenox ID Stable case d/w ICU team and ER Labs, imaging records reviewed Approximately 50 critical care minutes required evaluation, exam, review, dimension, discussion formulation of plan of care this critically ill patient with severe metabolic acidosis secondary to DKA at high risk for further and ongoing decompensation Provider Notation Provider Notation: Although this document has been carefully reviewed, there may still be some phonetic and other typographical errors. These errors are purely grammatical due to imperfections in the software program and should not be construed in any way to compromise the substance of the patient's medical care during this visit. Thank you for the opportunity and privilege in assisting you with this patient's care and management.
[2025-01-15] MEDS: RINGERS LACTATED 1000 ML 1,000 ML 250 ML IV (15:36)
[2025-01-15 16:20] LABS: Chloride,Urine Random < 20.0 mMol/L (55.0-125.0); Potassium,Urine Random 28 mMol/L (12-62); Sodium,Urine Random 78.4 mMol/L (20.0-110.0)
[2025-01-15 16:31] LABS: Reflex Lactate? Y
[2025-01-15 16:38] LABS: Albumin, Serum 4.0 gm/dL (3.5-5.0); Anion Gap 28 (7-16); BUN/Creatinine Ratio 13 Ratio (12-20); Blood Urea Nitrogen 20 mg/dL (9-23); Calcium 8.6 mg/dL (8.3-10.6); Calcium (Corrected) 8.6 mg/dL (8.5-10.1); Chloride 105 mMol/L (98-107); Creatinine (Component) 1.5 mg/dL (0.6-1.3); Estimated Creatinine Clearance 47.1 mL/min (>60); Osmolality,Calculated 305 (275-295); Phosphorous 3.9 mg/dL (2.4-5.1); Potassium 4.4 mMol/L (3.4-5.1); Sodium 143 mMol/L (136-145); eGFR 45 See Note
[2025-01-15 16:43] LABS: Carbon Dioxide < 10.0 mMol/L (20.0-31.0); Glucose 422 mg/dL (74-106)
[2025-01-15 16:44] LABS: Lactic Acid, 3 HR 4.1 mMol/L (0.4-2.0)
[2025-01-15] MEDS: POT CHL ADDITIVE 20 MEQ in RINGERS LACTATED 1000 ML 1,000 ML 250 MEQ IV (17:49)
[2025-01-15 17:56] LABS: Collection Type, Urine Catheter
[2025-01-15 18:05] LABS: Bilirubin,Urine 1+ (Negative); Blood,Urine Trace (Negative); Clarity,Urine Clear (Clear/Hazy); Color,Urine Lt-Yellow (Lt Yel-Yel); Culture Indicated,Urine Not Indicated; Glucose, Urine 3+ (Negative); Granular Casts,Urine < 1 /hpf (0-1); Hyaline Casts,Urine < 1 /hpf (0-1); Ketones,Urine 4+ (Negative); Leukocyte Esterase,Urine Negative (Negative); Nitrite,Urine Negative (Negative); PH,Urine 5.5 (5.0-7.0); Protein,Urine Trace (Neg - Trace); RBC,Urine 3 /hpf (0-3); Specific Gravity,Urine 1.022 (1.001-1.035); Squamous Epithelial Cell,Urine 1 /hpf (0-5); Urobilinogen,Urine 4.0 mg/dL (0.0-1.0); WBC,Urine 2 /hpf (0-5)
[2025-01-15 18:07] LABS: HCG Qualitative,Urine Negative
--- NOTE | 2025-01-15 18:18 | PC.NURSE ---
confirmed with dr wheeler current labs ordered, per MD VBG per protocol not needed
[2025-01-15 18:20] LABS: Amphetamine/Methamp Scrn,U Negative (Negative); Barbiturate Screen,Urine Negative (Negative); Benzodiazepines Screen,Urine Negative (Negative); Benzoylecgonine Screen, Ur Negative (Negative); Fentanyl Screen,Urine Negative (Negative); Opiate Screen,Urine Negative (Negative); THC Screen,Urine Negative (Negative)
[2025-01-15 18:22] LABS: Magnesium 2.0 mg/dL (1.6-2.6)
[2025-01-15] MEDS: POT CHL ADDITIVE 20 MEQ in DEXTROSE 5%-LACTATED RINGERS 1,000 ML 250 MEQ IV ×2 (18:32→22:43)
[2025-01-15 18:44] LABS: Lactate (Lactic Acid) 3.9 mMol/L (0.4-2.0)
[2025-01-15 19:14] LABS: Albumin, Serum 3.8 gm/dL (3.5-5.0); Anion Gap 25 (7-16); BUN/Creatinine Ratio 20 Ratio (12-20); Blood Urea Nitrogen 24 mg/dL (9-23); Calcium 9.0 mg/dL (8.3-10.6); Calcium (Corrected) 9.2 mg/dL (8.5-10.1); Chloride 108 mMol/L (98-107); Creatinine (Component) 1.2 mg/dL (0.6-1.3); Estimated Creatinine Clearance 58.9 mL/min (>60); Glucose 169 mg/dL (74-106); Osmolality,Calculated 298 (275-295); Phosphorous 2.0 mg/dL (2.4-5.1); Potassium 4.6 mMol/L (3.4-5.1); Sodium 146 mMol/L (136-145); eGFR 59 See Note
--- NOTE | 2025-01-15 19:25 | ESCONSULT_ITS ---
HPI Data of Consult Requesting Physician: Naila Perry MD Primary Care Provider: Physician No Primary/Family Consult Narrative Reason for consult: Multiple episodes of dark vomiting History of present illness: 39-year-old female brought into the hospital with multiple episodes of dark vomiting and confusion found to be in DKA with a CO2 less than 10 glucose 442 BUN/creatinine 20 and 1.5 osmolality 305 and lactic acid at 4.1 Patient has a longstanding history of diabetes mellitus type 1 with multiple admissions for DKA Presenting hemoglobin hematocrit was 14.2 and 43.6 Patient currently much history in the ICU I got some history from the mother and the father present in the room Patient is not taking any NSAIDs according to them as well as not on any cc:: cc: Naila Perry MD Review of Systems Review of Systems ROS Unobtainable: unobtainable due to medical condition Meds Home Medications and Allergies Allergies Allergy/AdvReac Type Severity Reaction Status Date / Time adhesive tape Allergy Severe Hives Verified 06/26/23 15:17 Exam Vital Signs Temp Pulse Resp BP Pulse Ox O2 Del Method 99.4 F 119 H 20 103/63 99 Room Air 01/15/25 16:00 01/15/25 18:15 01/15/25 18:15 01/15/25 18:15 01/15/25 18:15 01/15/25 14:43 Constitutional Comments: Somewhat somnolent not answering the questions Routine Respiratory Exam Comments: Normal to auscultation Routine Abdominal Exam Comments: Soft somewhat tender positive bowel sounds Results Labs 01/15/25 11:55 01/15/25 15:35 Labs: Short CBC 01/15/25 Range/Units 11:55 WBC 11.7 H (3.6-11.0) Thou/mm3 Hgb 14.2 (12.0-16.0) g/dL Hct 43.6 (36.0-46.0) % Plt Count 330 (140-440) Thou/mm3 BMP 01/15/25 01/15/25 11:55 15:35 Sodium 134 L 143 Potassium 5.6 H 4.4 D Chloride 94 L 105 Carbon Dioxide < 10.0 L* < 10.0 L* BUN 25 H 20 Creatinine 1.7 H 1.5 H Glucose 734 H* 422 H* D Calcium 9.2 8.6 Cardiac Enzymes 01/15/25 Range/Units 11:55 Troponin I < 0.002 (0.0-0.045) ng/mL Liver Function 01/15/25 01/15/25 Range/Units 11:55 15:35 Total Bilirubin 0.5 (0.3-1.2) mg/dL AST 21 (0-34) U/L ALT 20 (10-49) U/L Alkaline Phosphatase 176 H (46-116) U/L Albumin 4.3 4.0 (3.5-5.0) gm/dL Urine 01/15/25 Range/Units 17:38 Urine Color Lt-Yellow (Lt Yel-Yel) Urine Clarity Clear (Clear/Hazy) Urine pH 5.5 (5.0-7.0) Ur Specific [place] 1.022 (1.001-1.035) Urine Protein Trace (Neg - Trace) Urine Glucose (UA) 3+ A (Negative) ABG Interpretation ABG results: 01/15/25 12:08 ABG pH 7.14 L* ABG pCO2 16 L* ABG pO2 126 H ABG HCO3 5 L* ABG O2 Saturation 98 ABG Base Excess -22 L Assessment and Plan Additional Assessment & Plan Additional Plan: # Hematemesis differential diagnoses include Elvira-[place] tear Hemorrhagic gastritis peptic ulcer disease or distal esophageal ulcers # DKA Suggestions Hemoglobin hematocrit will drop once that hemoconcentration with IV fluids is resolved I will wait till the patient's DKA gets resolved before performing an upper endoscopy prior to discharge IV Protonix Serial CBC Thank you very much for the opportunity to participate in care of this patient
[2025-01-15] MEDS: HYDROmorphone INJ 2 MG/ML VIAL 0.5 MG IVP (19:39)
[2025-01-15 19:44] LABS: Carbon Dioxide 13.5 mMol/L (20.0-31.0)
[2025-01-15] MEDS: HEPARIN SOD INJ 5000 UNIT/ML VIAL SC (21:00)
[2025-01-15 21:06] LABS: Base Excess -6 (-3-3); HCO3 18 mEq/L (20-26); Inspired Oxygen, FIO2 21 %; O2 Saturation 99 % (91-98); PCO2 30 mmHg (32.0-48.0); PO2 95 mmHg (83-108); pH, Arterial 7.38 (7.35-7.45)
[2025-01-15] MEDS: ONDANSETRON INJ 2 MG/ML INJ 2 ML 4 MG IVP (21:06)
[2025-01-15 21:12] LABS: Allen Test Performed/OK; Puncture Site Right Radial
[2025-01-15 21:39] LABS: Reflex Lactate? Y
[2025-01-15 22:55] LABS: Lactate (Lactic Acid) 2.2 mMol/L (0.4-2.0)
[2025-01-15 22:56] LABS: Base Excess, Venous -5 (-3-3); O2 Saturation, Venous 88 % (96-97); PCO2, Venous 36 mmHg (36-56); PO2, Venous 50 mmHg (15-58); pH, Venous 7.35 (7.33-7.66)
[2025-01-15 23:14] LABS: Albumin, Serum 3.7 gm/dL (3.5-5.0); Anion Gap 18 (7-16); BUN/Creatinine Ratio 18 Ratio (12-20); Blood Urea Nitrogen 22 mg/dL (9-23); Calcium 8.2 mg/dL (8.3-10.6); Calcium (Corrected) 8.4 mg/dL (8.5-10.1); Carbon Dioxide 19.2 mMol/L (20.0-31.0); Chloride 110 mMol/L (98-107); Creatinine (Component) 1.2 mg/dL (0.6-1.3); Estimated Creatinine Clearance 58.9 mL/min (>60); Glucose 155 mg/dL (74-106); Magnesium 1.6 mg/dL (1.6-2.6); Osmolality,Calculated 298 (275-295); Phosphorous 2.0 mg/dL (2.4-5.1); Potassium 4.4 mMol/L (3.4-5.1); Sodium 147 mMol/L (136-145); eGFR 59 See Note
[2025-01-16] VITALS (47 sets, daily range): BP systolic 92–128; BP diastolic 40–83; PULSE 95–120; RESP 4–22; TEMP 36.5–37.3; O2SAT 93–99; BMI 25.1; BMI 25.0
[2025-01-16 01:51] LABS: Reflex Lactate? Y
[2025-01-16 02:30] LABS: Lactic Acid, 3 HR 1.7 mMol/L (0.4-2.0)
[2025-01-16 02:34] LABS: Basophils # (Auto) 0.0 Thou/mm3 (0.0-0.2); Basophils % (Auto) 0 % (0-2.5); Eosinophils # (Auto) 0.0 Thou/mm3 (0.0-0.5); Eosinophils % (Auto) 0 % (0-10); Hematocrit 35.7 % (36.0-46.0); Hemoglobin 12.0 g/dL (12.0-16.0); Immature Granulocytes Auto 0.05 Thou/mm3 (0.00-0.00); Lymphocytes # (Auto) 1.5 Thou/mm3 (1.0-4.8); Lymphocytes % (Auto) 12 % (10-50); Mean Corpuscular HGB Conc 33.6 g/dl (31.0-37.0); Mean Corpuscular Hemoglobin 30.2 pg (25.0-35.0); Mean Corpuscular Volume 90 fL (80-100); Monocytes # (Auto) 0.9 Thou/mm3 (0.0-0.8); Monocytes % (Auto) 7 % (0-12); Neutrophils # (Auto) 10.4 Thou/mm3 (1.8-7.7); Neutrophils % (Auto) 81 % (37-80); Nucleated Red Blood Cell # 0.00 Thou/mm3 (0.00-0.00); Nucleated Red Blood Cell % 0 /100 WBC (0); Platelet Count 269 Thou/mm3 (140-440); RDW Standard Deviation 44.6 fL (36.4-46.3); Red Blood Count 3.97 Miln/mm3 (4.00-5.20); White Blood Count 12.9 Thou/mm3 (3.6-11.0)
[2025-01-16 02:36] LABS: Beta Hydroxybutyrate 2.9 mmol/L (<0.6)
[2025-01-16 02:54] LABS: Albumin, Serum 3.4 gm/dL (3.5-5.0); Anion Gap 15 (7-16); BUN/Creatinine Ratio 15 Ratio (12-20); Blood Urea Nitrogen 17 mg/dL (9-23); Calcium 8.2 mg/dL (8.3-10.6); Calcium (Corrected) 8.7 mg/dL (8.5-10.1); Carbon Dioxide 21.5 mMol/L (20.0-31.0); Chloride 112 mMol/L (98-107); Creatinine (Component) 1.1 mg/dL (0.6-1.3); Estimated Creatinine Clearance 64.3 mL/min (>60); Glucose 155 mg/dL (74-106); Magnesium 1.6 mg/dL (1.6-2.6); Osmolality,Calculated 298 (275-295); Phosphorous 2.1 mg/dL (2.4-5.1); Potassium 4.0 mMol/L (3.4-5.1); Sodium 148 mMol/L (136-145); eGFR > 60 See Note
[2025-01-16] MEDS: POT CHL ADDITIVE 20 MEQ in DEXTROSE 5%-LACTATED RINGERS 1,000 ML 250 MEQ IV ×3 (03:15→12:06)
[2025-01-16] MEDS: Magnesium Sulfate 2 GM Ivpb 2 GM/50 ML BAG IV (03:37)
[2025-01-16 03:40] LABS: Base Excess, Venous -1 (-3-3); O2 Saturation, Venous 96 % (96-97); PCO2, Venous 37 mmHg (36-56); PO2, Venous 69 mmHg (15-58); pH, Venous 7.41 (7.33-7.66)
--- NOTE | 2025-01-16 04:49 | EKG_ITS ---
[facility] Test Date: 2025-01-16 Pat Name: JOCELYN GEORGE [facility] Goldbeater: VINOD : 1985 Requested By: Ricarda Argueta Order Number: [id number] Reading MD: Ricarda Argueta Measurements Intervals Martin Rate: 107 P: 65 WY: 136 QRS: 74 QRSD: 102 T: 66 QT: 340 QTc: 455 Interpretive Statements SINUS TACHYCARDIA INCOMPLETE RIGHT BUNDLE BRANCH BLOCK MODERATE T-WAVE ABNORMALITY, CONSIDER LATERAL ISCHEMIA Compared to ECG 06/26/2023 17:19:57 Incomplete right bundle-branch block now present Possible ischemia now present T-wave abnormality still present /store/S0/[id number].pdf
[2025-01-16] MEDS: HYDROmorphone INJ 2 MG/ML VIAL 0.5 MG IVP (05:00)
[2025-01-16] MEDS: ONDANSETRON INJ 2 MG/ML INJ 2 ML 4 MG IVP (05:00)
[2025-01-16 06:39] LABS: Base Excess, Venous 0 (-3-3); O2 Saturation, Venous 98 % (96-97); PCO2, Venous 37 mmHg (36-56); PO2, Venous 79 mmHg (15-58); pH, Venous 7.42 (7.33-7.66)
[2025-01-16 07:19] LABS: Albumin, Serum 3.2 gm/dL (3.5-5.0); Anion Gap 15 (7-16); BUN/Creatinine Ratio 13 Ratio (12-20); Blood Urea Nitrogen 14 mg/dL (9-23); Calcium 8.2 mg/dL (8.3-10.6); Calcium (Corrected) 8.8 mg/dL (8.5-10.1); Carbon Dioxide 22.2 mMol/L (20.0-31.0); Chloride 111 mMol/L (98-107); Creatinine (Component) 1.1 mg/dL (0.6-1.3); Estimated Creatinine Clearance 64.3 mL/min (>60); Glucose 159 mg/dL (74-106); Magnesium 1.7 mg/dL (1.6-2.6); Osmolality,Calculated 297 (275-295); Phosphorous 1.9 mg/dL (2.4-5.1); Potassium 3.9 mMol/L (3.4-5.1); Sodium 148 mMol/L (136-145); eGFR > 60 See Note
--- NOTE | 2025-01-16 07:25 | ESPR_ITS ---
<Statement entered by Lilly Mclaughlin MD - 01/16/25 16:56> I have reviewed the note and agree with the resident's assessment & plan with exceptions as below. I have personally reviewed labs, imaging, home meds/prior records, examined the patient, formulated and discussed management plan with the IM team. Pt examined at bedside today. No acute overnight events. Pt's gap has closed, will transition to Subq insulin as listed below. Pt denies hx of excessive NSAID use, does not have heavy periods either. Hgb stable at 12, however GI was consulted for one episode of hematemesis, pt may get EGD upon D/C. Pt will be downgraded to Med/Surg, gave patient diabetic education. Neurology: #Acute Metabolic Encephalopathy, resolved Cardiology: #Sinus Tachycardia, improving DDx: Likely related to pain and DKA Dx: EKG (Stable) and Troponin (negative) Rx: Treat underlying problem (See Endo and Renal) RRX: If patient's condition does not improve Pulmonary: #Tachypnea, 2/2 metabolic acidosis, resolved Gastrointestinal: #Nausea 2/2 DKA Plan: PRN Zofran Reglan 10 mg IV q6h PRN #Constipation DDx: dehydration, immobilization Plan: Bowel Regimen Nephrology: #HAGMA, resolved #Metabolic acidosis with respiratory alkalosis, resolved #Lactic acidosis type A vs B, resolved #ADEEL, resolved Genitourinary: Stable Hematology: #Leukocytosis Likely reactive or related to DKA, or dehydration However, infection cannot be ruled out at this time. Plan: Trend CBC Endocrine: #DKA Anion gap closed twice, currently at 10 74 units of Regular Insulin from drip last 24 hrs Will transition to Subq 30 units Degludec, Lispro 5 units TIDWM, and Step 3 sliding scale Glucose checks ACHS with hypoglycemic protocol in place Infectious Disease: Stable Lilly Mclaughlin, PGY-2 Internal Medicine Documentation for date of: 01/16/25 Subjective Subjective Interval history: Ms. Dominguez is a 39 year old woman with a history of poorly controlled insulin dependent diabetes, A1c 13, followed by pcp at [facility]. She presented with nausea and vomiting. no significant NSAID use. Vague L sided abdominial discomfort, nonfocal and benign abdominal exam. admitted to the ICU for DKA. 01/15/2025: Admit to the ICU for DKA management, on insulin drip. GI consulted by ED given c/f hematemesis 01/16/2025: Patient seen and examined at bedside, No acute events overnight, given Dilaudid 0.5 IV x2 for abdominal pain. LA normalized, Bhydroxybutrate downtrending from time of admission, ADEEL resolving with fluids. AG closing, will continue insulin drip and transition to sub q. will start on reglan given c/f gastroparesis. Exam Vital Signs Temp Pulse Resp BP Pulse Ox O2 Del Method 99.1 F 103 H 16 124/75 96 Room Air 01/16/25 00:00 01/16/25 06:45 01/16/25 06:45 01/16/25 06:45 01/16/25 06:45 01/15/25 14:43 Narrative Exam GENERAL: no acute distress, AAO x3, comfortably laying in bed HEENT: Head AT/ NC. Mucous membranes moist. PERRL. NECK: Supple, no lymphadenopathy, no carotid bruits. CARDIOVASCULAR: Sinus tachycardia . Normal S1/S2, No m/r/g. No pitting edema of bilateral LEs. RESPIRATORY: CTAB. No wheezing, rhonchi, crackles. GASTROINTESTINAL: Abdomen soft, non tender no palpable masses. Bowel sounds present c/o L abdominal cramping pain MUSCULOSKELETAL:? No cyanosis or edema, no visible joint swelling. NEUROLOGICAL: CN II-XII grossly intact. No focal deficits. Sensation intact, symmetric. PSYCHIATRIC: Awake and alert, not agitated, normal mood and affect. SKIN: No obvious rashes, no jaundice, normal turgor. Objective Labs 01/16/25 02:14 01/16/25 13:45 Labs: Laboratory Results - last 24 hr 01/15/25 01/15/25 01/15/25 11:55 12:08 13:27 WBC 11.7 H RBC 4.65 Hgb 14.2 Hct 43.6 MCV 94 MCH 30.5 MCHC 32.6 RDW Std Deviation 45.6 Plt Count 330 Neut % (Auto) 86 H Lymph % (Auto) 10 [place] % (Auto) 2 Eos % (Auto) 0 Baso % (Auto) 0 Neut # (Auto) 10.1 H Lymph # (Auto) 1.2 [place] # (Auto) 0.3 Eos # (Auto) 0.0 Baso # (Auto) 0.0 Immature Gran # (Auto) 0.05 H Absolute Nucleated RBC 0.00 Immature Gran % 0 Nucleated RBC % 0 PT 10.0 INR 0.9 APTT 22.0 Puncture Site Right Radial ABG pH 7.14 L* ABG pCO2 16 L* ABG pO2 126 H ABG HCO3 5 L* ABG O2 Saturation 98 ABG Base Excess -22 L VBG pH VBG pCO2 VBG pO2 VBG O2 Sat ([place]) VBG Base Excess FiO2 21 Sodium 134 L Potassium 5.6 H Chloride 94 L Carbon Dioxide < 10.0 L* Anion Gap 30 H BUN 25 H Creatinine 1.7 H Estim Creat Clear Calc 41.6 L eGFR 39 L BUN/Creatinine Ratio 15 Glucose 734 H* Estimated Ave Glu mg/dL 326 H Hemoglobin A1c 13.0 H Calculated Osmolality 307 H Lactic Acid 4.1 H* Calcium 9.2 Corrected Calcium 9.2 Phosphorus Magnesium 2.2 Total Bilirubin 0.5 AST 21 ALT 20 Alkaline Phosphatase 176 H Ammonia 12 Troponin I < 0.002 Total Protein 7.6 Albumin 4.3 Globulin 3.3 Albumin/Globulin Ratio 1.3 Lipase 27 Beta-Hydroxybutyrate/Acetoacetate 5.4 H Ur Collection Type Urine Color Urine Clarity Urine pH Ur Specific [place] Urine Protein Urine Glucose (UA) Urine Ketones Urine Blood Urine Nitrite Urine Bilirubin Urine Urobilinogen (Auto) Ur Leukocyte Esterase Urine RBC Urine WBC Ur Squamous Epith Cells Urine Bacteria Hyaline Casts Granular Casts Ur Culture Indicated? Ur Random Sodium Ur Random Potassium Ur Random Chloride Urine HCG, Qual Urine Opiates Screen Urine Fentanyl Screen Ur Barbiturates Screen U Amphetamin/Meth Scrn U Benzodiazepines Scrn U Cocaine Metab Screen U Marijuana (THC) Screen HCG (Qual) Negative 01/15/25 01/15/25 01/15/25 13:28 15:35 17:35 WBC RBC Hgb Hct MCV MCH MCHC RDW Std Deviation Plt Count Neut % (Auto) Lymph % (Auto) [place] % (Auto) Eos % (Auto) Baso % (Auto) Neut # (Auto) Lymph # (Auto) [place] # (Auto) Eos # (Auto) Baso # (Auto) Immature Gran # (Auto) Absolute Nucleated RBC Immature Gran % Nucleated RBC % PT INR APTT Puncture Site ABG pH ABG pCO2 ABG pO2 ABG HCO3 ABG O2 Saturation ABG Base Excess VBG pH VBG pCO2 VBG pO2 VBG O2 Sat ([place]) VBG Base Excess FiO2 Sodium 143 Potassium 4.4 D Chloride 105 Carbon Dioxide < 10.0 L* Anion Gap 28 H BUN 20 Creatinine 1.5 H Estim Creat Clear Calc 47.1 L eGFR 45 L BUN/Creatinine Ratio 13 Glucose 422 H* D Estimated Ave Glu mg/dL Hemoglobin A1c Calculated Osmolality 305 H Lactic Acid 4.1 H* Calcium 8.6 Corrected Calcium 8.6 Phosphorus 3.9 Magnesium 2.0 Total Bilirubin AST ALT Alkaline Phosphatase Ammonia Troponin I Total Protein Albumin 4.0 Globulin Albumin/Globulin Ratio Lipase Beta-Hydroxybutyrate/Acetoacetate Ur Collection Type Urine Color Urine Clarity Urine pH Ur Specific [place] Urine Protein Urine Glucose (UA) Urine Ketones Urine Blood Urine Nitrite Urine Bilirubin Urine Urobilinogen (Auto) Ur Leukocyte Esterase Urine RBC Urine WBC Ur Squamous Epith Cells Urine Bacteria Hyaline Casts Granular Casts Ur Culture Indicated? Ur Random Sodium 78.4 Ur Random Potassium 28 Ur Random Chloride < 20.0 L Urine HCG, Qual Urine Opiates Screen Urine Fentanyl Screen Ur Barbiturates Screen U Amphetamin/Meth Scrn U Benzodiazepines Scrn U Cocaine Metab Screen U Marijuana (THC) Screen HCG (Qual) 01/15/25 01/15/25 01/15/25 17:38 18:34 20:54 WBC RBC Hgb Hct MCV MCH MCHC RDW Std Deviation Plt Count Neut % (Auto) Lymph % (Auto) [place] % (Auto) Eos % (Auto) Baso % (Auto) Neut # (Auto) Lymph # (Auto) [place] # (Auto) Eos # (Auto) Baso # (Auto) Immature Gran # (Auto) Absolute Nucleated RBC Immature Gran % Nucleated RBC % PT INR APTT Puncture Site Right Radial ABG pH 7.38 D ABG pCO2 30 L D ABG pO2 95 D ABG HCO3 18 L ABG O2 Saturation 99 H ABG Base Excess -6 L VBG pH VBG pCO2 VBG pO2 VBG O2 Sat ([place]) VBG Base Excess FiO2 21 Sodium 146 H Potassium 4.6 Chloride 108 H Carbon Dioxide 13.5 L* Anion Gap 25 H BUN 24 H Creatinine 1.2 Estim Creat Clear Calc 58.9 L eGFR 59 L BUN/Creatinine Ratio [address] Glucose [address] Glu mg/dL Hemoglobin A1c Calculated Osmolality 298 H Lactic Acid 3.9 H Calcium 9.0 Corrected Calcium 9.2 Phosphorus 2.0 L Magnesium Total Bilirubin AST ALT Alkaline Phosphatase Ammonia Troponin I Total Protein Albumin 3.8 Globulin Albumin/Globulin Ratio Lipase Beta-Hydroxybutyrate/Acetoacetate Ur Collection Type Catheter Urine Color Lt-Yellow Urine Clarity Clear Urine pH 5.5 Ur Specific [place] 1.022 Urine Protein Trace Urine Glucose (UA) 3+ A Urine Ketones 4+ A Urine Blood Trace Urine Nitrite Negative Urine Bilirubin 1+ A Urine Urobilinogen (Auto) 4.0 Ur Leukocyte Esterase Negative Urine RBC 3 Urine WBC 2 Ur Squamous Epith Cells 1 Urine Bacteria None Hyaline Casts < 1 Granular Casts < 1 Ur Culture Indicated? Not Indicated Ur Random Sodium Ur Random Potassium Ur Random Chloride Urine HCG, Qual Negative Urine Opiates Screen Negative Urine Fentanyl Screen Negative Ur Barbiturates Screen Negative U Amphetamin/Meth Scrn Negative U Benzodiazepines Scrn Negative U Cocaine Metab Screen Negative U Marijuana (THC) Screen Negative HCG (Qual) 01/15/25 01/16/25 01/16/25 22:37 02:14 06:25 WBC 12.9 H RBC 3.97 L Hgb 12.0 D Hct 35.7 L MCV 90 MCH 30.2 MCHC 33.6 RDW Std Deviation 44.6 Plt Count 269 D Neut % (Auto) 81 H Lymph % (Auto) 12 [place] % (Auto) 7 Eos % (Auto) 0 Baso % (Auto) 0 Neut # (Auto) 10.4 H Lymph # (Auto) 1.5 [place] # (Auto) 0.9 H Eos # (Auto) 0.0 Baso # (Auto) 0.0 Immature Gran # (Auto) 0.05 H Absolute Nucleated RBC 0.00 Immature Gran % 0 Nucleated RBC % 0 PT INR APTT Puncture Site ABG pH ABG pCO2 ABG pO2 ABG HCO3 ABG O2 Saturation ABG Base Excess VBG pH 7.35 7.41 7.42 VBG pCO2 36 37 37 VBG pO2 50 69 H 79 H VBG O2 Sat ([place]) 88 L 96 98 H VBG Base Excess -5 L -1 0 FiO2 Sodium 147 H 148 H 148 H Potassium 4.4 4.0 3.9 Chloride 110 H 112 H 111 H Carbon Dioxide 19.2 L 21.5 22.2 Anion Gap 18 H 15 15 BUN 22 17 14 Creatinine 1.2 1.1 1.1 Estim Creat Clear Calc 58.9 L 64.3 64.3 eGFR 59 L > 60 > 60 BUN/Creatinine Ratio 18 15 13 Glucose 155 H 155 [address] Glu mg/dL Hemoglobin A1c Calculated Osmolality 298 H 298 H 297 H Lactic Acid 2.2 H 1.7 Calcium 8.2 L 8.2 L 8.2 L Corrected Calcium 8.4 L 8.7 8.8 Phosphorus 2.0 L 2.1 L 1.9 L Magnesium 1.6 1.6 1.7 Total Bilirubin AST ALT Alkaline Phosphatase Ammonia Troponin I Total Protein Albumin 3.7 3.4 L 3.2 L Globulin Albumin/Globulin Ratio Lipase Beta-Hydroxybutyrate/Acetoacetate 2.9 H Ur Collection Type Urine Color Urine Clarity Urine pH Ur Specific [place] Urine Protein Urine Glucose (UA) Urine Ketones Urine Blood Urine Nitrite Urine Bilirubin Urine Urobilinogen (Auto) Ur Leukocyte Esterase Urine RBC Urine WBC Ur Squamous Epith Cells Urine Bacteria Hyaline Casts Granular Casts Ur Culture Indicated? Ur Random Sodium Ur Random Potassium Ur Random Chloride Urine HCG, Qual Urine Opiates Screen Urine Fentanyl Screen Ur Barbiturates Screen U Amphetamin/Meth Scrn U Benzodiazepines Scrn U Cocaine Metab Screen U Marijuana (THC) Screen HCG (Qual) ABG Interpretation ABG results: 01/15/25 01/15/25 01/15/25 12:08 20:54 22:37 ABG pH 7.14 L* 7.38 D ABG pCO2 16 L* 30 L D ABG pO2 126 H 95 D ABG HCO3 5 L* 18 L ABG O2 Saturation 98 99 H ABG Base Excess -22 L -6 L VBG pH 7.35 VBG pCO2 36 VBG pO2 50 VBG Base Excess -5 L 01/16/25 01/16/25 02:14 06:25 ABG pH ABG pCO2 ABG pO2 ABG HCO3 ABG O2 Saturation ABG Base Excess VBG pH 7.41 7.42 VBG pCO2 37 37 VBG pO2 69 H 79 H VBG Base Excess -1 0 Quality Measures Quality Measures VTE prophylaxis Assessment & Plan Assessment Current Active Medications: Generic Name Dose Route Start Last Admin Trade Name Freq PRN Reason Stop Dose Admin Dextrose 25 ml 01/15/25 12:40 Dextrose 50%-Water Inj 50 Ml Syringe IV [id number] PRN Blood Sugar - Low Heparin Sodium (Porcine) 5,000 unit 01/15/25 21:00 01/15/25 21:00 Heparin Sod Inj 5000 Unit/Ml Vial SC 01/29/25 20:59 5,000 unit BID DERRICK Administration Potassium Chloride 20 meq/ 1,010 mls @ 250 mls/hr 01/15/25 12:40 01/16/25 03:15 Dextrose/Lactated Ringer's IV 02/14/25 12:39 250 mls/hr .Q4H3M PRN Administration K LEVEL 3.3 TO 5.3 mM/L Potassium Chloride 40 meq/ 1,020 mls @ 250 mls/hr 01/15/25 12:40 Dextrose/Lactated Ringer's IV 02/14/25 12:39 .Q4H5M PRN K LEVEL < 3.3mM/L Potassium Chloride 10 meq in 100 mls @ 100 mls/hr 01/15/25 12:40 Kcl Ivpb IV 02/14/25 12:39 .Q1H PRN IF POTASSIUM LESS THAN 3.3 Insulin Human Regular 100 unit 100 mls @ 6.35 mls/hr 01/15/25 12:40 01/16/25 07:00 / IV Miscellaneous Supplies IV 02/14/25 12:39 0.05 unit/kg/hr .[id number] PRN 3.175 mls/hr PER PROTOCOL Titration Protocol 0.1 UNIT/KG/HR Dextrose/Lactated Ringer's 1,000 mls @ 250 mls/hr 01/15/25 12:40 D5-Lr IV 02/14/25 12:39 .Q4H PRN PER PROTOCOL Lactated Ringer's 1,000 mls @ 250 mls/hr 01/15/25 12:40 01/15/25 16:39 Lactated Ringers IV 01/16/25 12:39 0 mls/hr .Q4H PRN Infusion PER PROTOCOL Potassium Chloride 20 meq/ 1,010 mls @ 250 mls/hr 01/15/25 12:40 01/15/25 17:49 Lactated Ringer's IV 02/14/25 12:39 250 mls/hr .Q4H3M PRN Administration K LEVEL 3.3 TO 5.3mM/L Potassium Chloride 40 meq/ 1,020 mls @ 250 mls/hr 01/15/25 12:40 Lactated Ringer's IV 02/14/25 12:39 .Q4H5M PRN K LEVEL < 3.3 mM/L Potassium Chloride 10 meq in 100 mls @ 50 mls/hr 01/15/25 12:40 Kcl Ivpb IV 02/14/25 12:39 PRN PRN K LEVEL 3.3 to 5.3 & BG > 200 Sodium Phosphate 15 mmol/ 255 mls @ 62.5 mls/hr 01/15/25 12:40 Sodium Chloride IV 02/14/25 12:39 .Q4H5M PRN Phosphate <= 1mg/dL and K> than 5.3 Magnesium Sulfate 2 gm in 50 mls @ 25 mls/hr 01/15/25 16:56 01/16/25 03:37 Magnesium Sulfate Ivpb IV 02/14/25 12:39 25 mls/hr .Q2H PRN Administration PER DKA PROTOCOL Potassium Phosphate 15 mmol in 250 mls @ 62.5 mls/hr 01/15/25 16:56 Pot Phos 15 Mmol In Ns 250 Ml IV 02/14/25 12:39 PRN PRN Phosphate <= 2mg/dL Ondansetron HCl 4 mg 01/15/25 13:43 01/16/25 05:00 Ondansetron Inj 2 Mg/Ml Inj 2 Ml IVP 02/14/25 13:42 4 mg Q6H PRN Administration NAUSEA OR VOMITING Protocol Sodium Bicarbonate 50 ml 01/15/25 12:40 Sodium Bicarb Inj 8.4% Syr 50 Ml Syringe IV 02/14/25 12:39 Q4HR PRN For ph <= to 7.0 Plan Ms. Dominguez is a 39 year old woman with a history of insulin dependent DM, poorly controlled who was BIBA for acute encephalopathy and elevated blood glucose to 700s, found to have elevated beta hydroxy butrate and LA, admtited to the icu for managment of DKA Neurology: #Acute Encephalopathy- resolved DDx: Metabolic (related to DKA), Cardiology: #Sinus Tachycardia DDx: Likely related to pain and DKA, patient recieved dilaudid overnight and her tachycardia persisted despite improvement in her pain, so likely 2/2 dehydration is dka and emesis Dx: EKG (Stable) and Troponin (negative) Rx: Treat underlying problem (See Endo and Renal) RRX: If patient's condition does not improve Pulmonary: #Tachypnea, 2/2 metabolic acidosis - resolved Stable no active problems. Gastrointestinal: #Nausea + emesis 2/2 DKA, vs gastroparesis vs SBO iso abdominal surgeries (tubal ligation, hernia repairs, and c section). ?hematemeis (dark colored emesis and pt is unsure of whether it looked like there was blood)no hx of heavy nsaid use. Dx: GI consulted, plan for EGD prior to discharge Rx PRN Zofran, Reglan 10 x1 (given suspician of gasproparesis iso poorly controlled dm), pantoprazole 40 IV qd. Nephrology: #HAGMA- gap is closing #Metabolic acidosis DDx: DKA, AG 30-->15 (17 corrected gap) Dx: CMP, U/A, A1c (13), Beta-Hydroxybutyrate (5.4-->2.9), folow up 1400 Betahydroxybutryate lab Rx: Insulin Drip 0.1 unit/kg, serial renal panels with phosphorous q4hr , glucose q1h checks RRX: If not enough insulin not given or gap doesn't close #ADEEL- resolving DDx: Likely prerenal, in setting of poor po intake, and GI lossis 2/2 emesis Dx: renal function panel , Cr 1.7-->1.1 Rx: IV Lactated Ringer Boluses, encourage PO intake RRX: If we underlying problem is not fixed #Hypernatremia DDx: likely 2/2 dehydration, 2/2 poor po intake iso not feeling well, and GI losses iso multiple episodes of bileous emesis.Serum Osm 282 (wnl) Dx: Renal function panel q4hr Rx: IV LR, Encourage PO intake RRX: If patient continues to not be able to tolerate PO due to gi upset. #Electrolyte abnormalities Dx renal panel q4hr Rx:replete mg and phos as indicated #Lactic acidosis type A vs B- resolved Genitourinary: Stable, betancourt placed UA bland and utox negative Hematology: #Leukocytosis Likely reactive or related to DKA vs hemoconcentration in setting of dehydration from poor po intake and emesis Plan: Trend CBC Hgb stable 12. Endocrine: #DKA- resolving #Insulin dependent DM patient states that she is followed by provider at the [facility], was last seen a couple of months ago, Long acting 50qhs, and 4-5 units short acting with meals. DDx: Hyperglycemia, HHS (blood glucose >600) A1c 13; Unsure if type I or type II Dx: A1c (13), CMP, ABG, 1400 Beta hydroxybuterate check to ensure that dka resolves Rx:Insulin Drip 0.1 unit/kg, serial renal panels with phosphorous, glucose q1h checks, will transition sq once AG closes twice RRX: If not insulin is given Infectious Disease: Stable at this time ICU Health maintenance: Dispo: admitted to the ICU for managment of DKA Diet: ice chips ok, encourage po water intake given mild hypernatremia DVT ppx: Heparin 5000 BID GI ppx: protonix 40 IV qd IV lines: PIV Arterial line: none Betancourt: yes Code status: Full Case disclosed with my senior resident Dr. Mclaughlin and my Attending Dr. Orlando Cote MD PGY1
[2025-01-16] MEDS: HEPARIN SOD INJ 5000 UNIT/ML VIAL SC ×2 (08:13→20:41)
[2025-01-16] MEDS: Magnesium Sulfate 4 GM Ivpb 4 GM/50 ML BAG IV (08:15)
--- NOTE | 2025-01-16 08:51 | ESPR_ITS ---
Documentation for date of: 01/16/25 Subjective Subjective Interval history: This is a 39-year-old female who is brought into the ER today by EMS for general malaise and intractable nausea and vomiting. The patient states that she started to become ill yesterday. Of note the patient is a very poor historian. Apparently prior to yesterday she was feeling well. She did not take her insulin today since she was unable to tolerate p.o. She began with nausea and vomiting yesterday evening and continued this morning. There is question of hematemesis per the ER. On arrival to the ED she was found to be tachypneic, hypotensive, tachycardic and agitated. A peripheral line was established and labs were obtained. Labs were significant for a metabolic acidosis and an anion gap of 30. The patient has a history of diabetes. The patient's beta hydroxy was found to be elevated and the ICU was contacted for admission for probable DKA. The patient herself complains of abdominal pain and right shoulder pain. It appears that the abdominal pain is related to her nausea vomiting and retching. In the ER she has received 2 L of IV fluids. A 3rd L is ordered along with an insulin drip. 01/16- no acute overnight events, cont to have some n/v this morning, afebrile , good UOP Critical Care Note Critical care time (min.): 0 Exam Vital Signs Temp Pulse Resp BP Pulse Ox O2 Del Method 99.1 F 103 H 16 124/75 96 Room Air 01/16/25 00:00 01/16/25 06:45 01/16/25 06:45 01/16/25 06:45 01/16/25 06:45 01/15/25 14:43 Narrative Exam Gen- NAD, AAOx3, nl body habitus HEENT- NC/AT, mucosa dry, biliary emesis, sclera anicteric, EOMI Chest- LCTAB, HRRR, no increase in WOB Abd- s/nt/bs+ Ext- no edema, pulses palp, no clubbing, no mottling, moves all 4 Drips insulin Physical Exam Completion Physical Exam Complete?: 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 01/16/25 02:14 01/16/25 10:05 Labs: Laboratory Results - last 24 hr 01/15/25 01/15/25 01/15/25 11:55 12:08 13:27 WBC 11.7 H RBC 4.65 Hgb 14.2 Hct 43.6 MCV 94 MCH 30.5 MCHC 32.6 RDW Std Deviation 45.6 Plt Count 330 Neut % (Auto) 86 H Lymph % (Auto) 10 [place] % (Auto) 2 Eos % (Auto) 0 Baso % (Auto) 0 Neut # (Auto) 10.1 H Lymph # (Auto) 1.2 [place] # (Auto) 0.3 Eos # (Auto) 0.0 Baso # (Auto) 0.0 Immature Gran # (Auto) 0.05 H Absolute Nucleated RBC 0.00 Immature Gran % 0 Nucleated RBC % 0 PT 10.0 INR 0.9 APTT 22.0 Puncture Site Right Radial ABG pH 7.14 L* ABG pCO2 16 L* ABG pO2 126 H ABG HCO3 5 L* ABG O2 Saturation 98 ABG Base Excess -22 L VBG pH VBG pCO2 VBG pO2 VBG O2 Sat ([place]) VBG Base Excess FiO2 21 Sodium 134 L Potassium 5.6 H Chloride 94 L Carbon Dioxide < 10.0 L* Anion Gap 30 H BUN 25 H Creatinine 1.7 H Estim Creat Clear Calc 41.6 L eGFR 39 L BUN/Creatinine Ratio 15 Glucose 734 H* Estimated Ave Glu mg/dL 326 H Hemoglobin A1c 13.0 H Calculated Osmolality 307 H Lactic Acid 4.1 H* Calcium 9.2 Corrected Calcium 9.2 Phosphorus Magnesium 2.2 Total Bilirubin 0.5 AST 21 ALT 20 Alkaline Phosphatase 176 H Ammonia 12 Troponin I < 0.002 Total Protein 7.6 Albumin 4.3 Globulin 3.3 Albumin/Globulin Ratio 1.3 Lipase 27 Beta-Hydroxybutyrate/Acetoacetate 5.4 H Ur Collection Type Urine Color Urine Clarity Urine pH Ur Specific [place] Urine Protein Urine Glucose (UA) Urine Ketones Urine Blood Urine Nitrite Urine Bilirubin Urine Urobilinogen (Auto) Ur Leukocyte Esterase Urine RBC Urine WBC Ur Squamous Epith Cells Urine Bacteria Hyaline Casts Granular Casts Ur Culture Indicated? Ur Random Sodium Ur Random Potassium Ur Random Chloride Urine HCG, Qual Urine Opiates Screen Urine Fentanyl Screen Ur Barbiturates Screen U Amphetamin/Meth Scrn U Benzodiazepines Scrn U Cocaine Metab Screen U Marijuana (THC) Screen HCG (Qual) Negative 01/15/25 01/15/25 01/15/25 13:28 15:35 17:35 WBC RBC Hgb Hct MCV MCH MCHC RDW Std Deviation Plt Count Neut % (Auto) Lymph % (Auto) [place] % (Auto) Eos % (Auto) Baso % (Auto) Neut # (Auto) Lymph # (Auto) [place] # (Auto) Eos # (Auto) Baso # (Auto) Immature Gran # (Auto) Absolute Nucleated RBC Immature Gran % Nucleated RBC % PT INR APTT Puncture Site ABG pH ABG pCO2 ABG pO2 ABG HCO3 ABG O2 Saturation ABG Base Excess VBG pH VBG pCO2 VBG pO2 VBG O2 Sat ([place]) VBG Base Excess FiO2 Sodium 143 Potassium 4.4 D Chloride 105 Carbon Dioxide < 10.0 L* Anion Gap 28 H BUN 20 Creatinine 1.5 H Estim Creat Clear Calc 47.1 L eGFR 45 L BUN/Creatinine Ratio 13 Glucose 422 H* D Estimated Ave Glu mg/dL Hemoglobin A1c Calculated Osmolality 305 H Lactic Acid 4.1 H* Calcium 8.6 Corrected Calcium 8.6 Phosphorus 3.9 Magnesium 2.0 Total Bilirubin AST ALT Alkaline Phosphatase Ammonia Troponin I Total Protein Albumin 4.0 Globulin Albumin/Globulin Ratio Lipase Beta-Hydroxybutyrate/Acetoacetate Ur Collection Type Urine Color Urine Clarity Urine pH Ur Specific [place] Urine Protein Urine Glucose (UA) Urine Ketones Urine Blood Urine Nitrite Urine Bilirubin Urine Urobilinogen (Auto) Ur Leukocyte Esterase Urine RBC Urine WBC Ur Squamous Epith Cells Urine Bacteria Hyaline Casts Granular Casts Ur Culture Indicated? Ur Random Sodium 78.4 Ur Random Potassium 28 Ur Random Chloride < 20.0 L Urine HCG, Qual Urine Opiates Screen Urine Fentanyl Screen Ur Barbiturates Screen U Amphetamin/Meth Scrn U Benzodiazepines Scrn U Cocaine Metab Screen U Marijuana (THC) Screen HCG (Qual) 01/15/25 01/15/25 01/15/25 17:38 18:34 20:54 WBC RBC Hgb Hct MCV MCH MCHC RDW Std Deviation Plt Count Neut % (Auto) Lymph % (Auto) [place] % (Auto) Eos % (Auto) Baso % (Auto) Neut # (Auto) Lymph # (Auto) [place] # (Auto) Eos # (Auto) Baso # (Auto) Immature Gran # (Auto) Absolute Nucleated RBC Immature Gran % Nucleated RBC % PT INR APTT Puncture Site Right Radial ABG pH 7.38 D ABG pCO2 30 L D ABG pO2 95 D ABG HCO3 18 L ABG O2 Saturation 99 H ABG Base Excess -6 L VBG pH VBG pCO2 VBG pO2 VBG O2 Sat ([place]) VBG Base Excess FiO2 21 Sodium 146 H Potassium 4.6 Chloride 108 H Carbon Dioxide 13.5 L* Anion Gap 25 H BUN 24 H Creatinine 1.2 Estim Creat Clear Calc 58.9 L eGFR 59 L BUN/Creatinine Ratio 20 Glucose [address] Glu mg/dL Hemoglobin A1c Calculated Osmolality 298 H Lactic Acid 3.9 H Calcium 9.0 Corrected Calcium 9.2 Phosphorus 2.0 L Magnesium Total Bilirubin AST ALT Alkaline Phosphatase Ammonia Troponin I Total Protein Albumin 3.8 Globulin Albumin/Globulin Ratio Lipase Beta-Hydroxybutyrate/Acetoacetate Ur Collection Type Catheter Urine Color Lt-Yellow Urine Clarity Clear Urine pH 5.5 Ur Specific [place] 1.022 Urine Protein Trace Urine Glucose (UA) 3+ A Urine Ketones 4+ A Urine Blood Trace Urine Nitrite Negative Urine Bilirubin 1+ A Urine Urobilinogen (Auto) 4.0 Ur Leukocyte Esterase Negative Urine RBC 3 Urine WBC 2 Ur Squamous Epith Cells 1 Urine Bacteria None Hyaline Casts < 1 Granular Casts < 1 Ur Culture Indicated? Not Indicated Ur Random Sodium Ur Random Potassium Ur Random Chloride Urine HCG, Qual Negative Urine Opiates Screen Negative Urine Fentanyl Screen Negative Ur Barbiturates Screen Negative U Amphetamin/Meth Scrn Negative U Benzodiazepines Scrn Negative U Cocaine Metab Screen Negative U Marijuana (THC) Screen Negative HCG (Qual) 01/15/25 01/16/25 01/16/25 22:37 02:14 06:25 WBC 12.9 H RBC 3.97 L Hgb 12.0 D Hct 35.7 L MCV 90 MCH 30.2 MCHC 33.6 RDW Std Deviation 44.6 Plt Count 269 D Neut % (Auto) 81 H Lymph % (Auto) 12 [place] % (Auto) 7 Eos % (Auto) 0 Baso % (Auto) 0 Neut # (Auto) 10.4 H Lymph # (Auto) 1.5 [place] # (Auto) 0.9 H Eos # (Auto) 0.0 Baso # (Auto) 0.0 Immature Gran # (Auto) 0.05 H Absolute Nucleated RBC 0.00 Immature Gran % 0 Nucleated RBC % 0 PT INR APTT Puncture Site ABG pH ABG pCO2 ABG pO2 ABG HCO3 ABG O2 Saturation ABG Base Excess VBG pH 7.35 7.41 7.42 VBG pCO2 36 37 37 VBG pO2 50 69 H 79 H VBG O2 Sat ([place]) 88 L 96 98 H VBG Base Excess -5 L -1 0 FiO2 Sodium 147 H 148 H 148 H Potassium 4.4 4.0 3.9 Chloride 110 H 112 H 111 H Carbon Dioxide 19.2 L 21.5 22.2 Anion Gap 18 H 15 15 BUN 22 17 14 Creatinine 1.2 1.1 1.1 Estim Creat Clear Calc 58.9 L 64.3 64.3 eGFR 59 L > 60 > 60 BUN/Creatinine Ratio 18 15 13 Glucose 155 H 155 H [address] Glu mg/dL Hemoglobin A1c Calculated Osmolality 298 H 298 H 297 H Lactic Acid 2.2 H 1.7 Calcium 8.2 L 8.2 L 8.2 L Corrected Calcium 8.4 L 8.7 8.8 Phosphorus 2.0 L 2.1 L 1.9 L Magnesium 1.6 1.6 1.7 Total Bilirubin AST ALT Alkaline Phosphatase Ammonia Troponin I Total Protein Albumin 3.7 3.4 L 3.2 L Globulin Albumin/Globulin Ratio Lipase Beta-Hydroxybutyrate/Acetoacetate 2.9 H Ur Collection Type Urine Color Urine Clarity Urine pH Ur Specific [place] Urine Protein Urine Glucose (UA) Urine Ketones Urine Blood Urine Nitrite Urine Bilirubin Urine Urobilinogen (Auto) Ur Leukocyte Esterase Urine RBC Urine WBC Ur Squamous Epith Cells Urine Bacteria Hyaline Casts Granular Casts Ur Culture Indicated? 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 Follow-up on chest x-ray - Chest x-ray appears clear and her respiratory status has improved Renal Pseudohyponatremia- resolved Hyperkalemia- resolved Anion gap metabolic acidosis- now improved - minimal beta hydroxy - LA wnl HypoPhos- replete PO Acute kidney injury-likely prerenal in nature and secondary to volume depletion. Provide IV fluids and monitor I's and O's, avoid nephrotoxins. - back to baseline GI Intractable nausea and vomiting-as needed Zofran - encourage PO fluid intake - add on prn reglan as is still nauseas today Endo DKA-start on DKA protocol with labs every 4 hours, insulin drip and IV fluids. Once anion gap is closed x 2 can transition to subcutaneous insulin. Patient has history of poor compliance - AG has closed x2 however beta hydroxy is still elevated - will check a fu beta hydroxy prior to switching to subq insulin Heme Leukocytosis-likely reactive in nature DVT prophylaxis-Lovenox ID Stable case d/w ICU team and ER Labs, imaging records reviewed Approximately 35 minutes required evaluation, exam, review, dimension, discussion formulation of plan of care Provider Notation Provider Notation: Although this document has been carefully reviewed, there may still be some phonetic and other typographical errors. These errors are purely grammatical due to imperfections in the software program and should not be construed in any way to compromise the substance of the patient's medical care during this visit. Thank you for the opportunity and privilege in assisting you with this patient's care and management.
[2025-01-16] MEDS: NAPH,KPH MBDB 1 PACKET (1.5 GM) PO (09:06)
[2025-01-16] MEDS: METOCLOPRAMIDE INJ 5 MG/ML VIAL 2 ML 10 MG IVP (10:02)
[2025-01-16 10:48] LABS: Albumin, Serum 3.3 gm/dL (3.5-5.0); Anion Gap 11 (7-16); BUN/Creatinine Ratio 13 Ratio (12-20); Blood Urea Nitrogen 12 mg/dL (9-23); Calcium 8.4 mg/dL (8.3-10.6); Calcium (Corrected) 9.0 mg/dL (8.5-10.1); Carbon Dioxide 24.9 mMol/L (20.0-31.0); Chloride 111 mMol/L (98-107); Creatinine (Component) 0.9 mg/dL (0.6-1.3); Estimated Creatinine Clearance 78.6 mL/min (>60); Glucose 160 mg/dL (74-106); Magnesium 2.0 mg/dL (1.6-2.6); Osmolality,Calculated 295 (275-295); Phosphorous 1.0 mg/dL (2.4-5.1); Potassium 3.7 mMol/L (3.4-5.1); Sodium 147 mMol/L (136-145); eGFR > 60 See Note
--- NOTE | 2025-01-16 11:19 | PC.SS ---
EYEDOTTER conducted bedside contact with the patient to conduct initial assessment. Patient requested that EYEDOTTER re-visit later today due to the patient attempting to sleep. EYEDOTTER will re-attempt contact later in the day.
[2025-01-16] MEDS: POT PHOS 15 mMol in NS 250 ML 15 MMOL/250 ML BAG 62.5 MMOL IV ×3 (11:22→20:41)
[2025-01-16] MEDS: INSULIN REG 100 UNITS/100 ML 100 UNIT in PRE-MIXED 1 BAG IV (11:40)
[2025-01-16] MEDS: NAPH,KPH MBDB 1 PACKET (1.5 GM) 2 PACKET PO (13:12)
[2025-01-16 14:08] LABS: Beta Hydroxybutyrate 0.3 mmol/L (<0.6)
[2025-01-16 14:28] LABS: Albumin, Serum 3.2 gm/dL (3.5-5.0); Anion Gap 10 (7-16); BUN/Creatinine Ratio 13 Ratio (12-20); Blood Urea Nitrogen 12 mg/dL (9-23); Calcium 8.0 mg/dL (8.3-10.6); Calcium (Corrected) 8.6 mg/dL (8.5-10.1); Carbon Dioxide 25.4 mMol/L (20.0-31.0); Chloride 109 mMol/L (98-107); Creatinine (Component) 0.9 mg/dL (0.6-1.3); Estimated Creatinine Clearance 78.6 mL/min (>60); Glucose 193 mg/dL (74-106); Magnesium 3.8 mg/dL (1.6-2.6); Osmolality,Calculated 291 (275-295); Phosphorous 1.1 mg/dL (2.4-5.1); Potassium 3.9 mMol/L (3.4-5.1); Sodium 144 mMol/L (136-145); eGFR > 60 See Note
[2025-01-16] MEDS: INSULIN DEGLUDEC 5 UNIT/0.05 ML (PER 5 UNITS) 30 UNIT SC (14:57)
--- NOTE | 2025-01-16 15:11 | PD.RESPRO ---
Documentation for date of: 01/16/25 Subjective Subjective Interval history: Patient seen and examined at bedside; no acute events overnight. Insulin drip stopped; transitioned to degludec 35, lispro 5 TID, and sliding scale step 2. Patient reports being diagnosed with diabetes at 32 after her pregnancies; chart review shows diagnosis in 2014 with IDDM. Patient states that she takes her medications; of note A1c is 13. Exam Vital Signs Temp Pulse Resp BP Pulse Ox O2 Del Method 97.7 F 98 17 116/78 99 Room Air 01/16/25 08:00 01/16/25 14:00 01/16/25 14:00 01/16/25 14:00 01/16/25 14:00 01/16/25 08:00 Narrative Exam General: A/O x3, no acute distress, well-nourished, well-developed Eyes: PERRL, EOMI. Anicteric, vision grossly intact. Ears: No ear pain, no ear discharge, Hearing grossly intact. Nose: No nasal discharge. Mouth/Throat: Moist mucous membranes, no redness, no lesions. Neck: Neck supple, non-tender, no cervical lymphadenopathy. Lungs: Clear JORDI to auscultation and percussion, No accessory muscle use. Cardio: Normal S1/S2, regular rhythm, no murmurs, no JVD or carotid bruits. Abdomen: Soft, non-tender, no palpable masses, peristalsis present, no guarding or rebound. Extremities: Symmetrical, no significant deformities, no peripheral edema , non-tender, peripheral pulses present. Skin: No rashes, no lesions, warm to touch. Neuro: No focal neurological deficits. Psych: Cooperative, appropriate mood and effect. Objective Labs 01/17/25 04:50 01/17/25 04:50 Labs: Laboratory Results - last 24 hr 01/15/25 01/15/25 01/15/25 13:28 15:35 17:35 WBC RBC Hgb Hct MCV MCH MCHC RDW Std Deviation Plt Count Neut % (Auto) Lymph % (Auto) [place] % (Auto) Eos % (Auto) Baso % (Auto) Neut # (Auto) Lymph # (Auto) [place] # (Auto) Eos # (Auto) Baso # (Auto) Immature Gran # (Auto) Absolute Nucleated RBC Immature Gran % Nucleated RBC % Puncture Site ABG pH ABG pCO2 ABG pO2 ABG HCO3 ABG O2 Saturation ABG Base Excess VBG pH VBG pCO2 VBG pO2 VBG O2 Sat ([place]) VBG Base Excess FiO2 Sodium 143 Potassium 4.4 D Chloride 105 Carbon Dioxide < 10.0 L* Anion Gap 28 H BUN 20 Creatinine 1.5 H Estim Creat Clear Calc 47.1 L eGFR 45 L BUN/Creatinine Ratio 13 Glucose 422 H* D Calculated Osmolality 305 H Lactic Acid 4.1 H* Calcium 8.6 Corrected Calcium 8.6 Phosphorus 3.9 Magnesium 2.0 Albumin 4.0 Beta-Hydroxybutyrate/Acetoacetate Ur Collection Type Urine Color Urine Clarity Urine pH Ur Specific [place] Urine Protein Urine Glucose (UA) Urine Ketones Urine Blood Urine Nitrite Urine Bilirubin Urine Urobilinogen (Auto) Ur Leukocyte Esterase Urine RBC Urine WBC Ur Squamous Epith Cells Urine Bacteria Hyaline Casts Granular Casts Ur Culture Indicated? Ur Random Sodium 78.4 Ur Random Potassium 28 Ur Random Chloride < 20.0 L Urine HCG, Qual Urine Opiates Screen Urine Fentanyl Screen Ur Barbiturates Screen U Amphetamin/Meth Scrn U Benzodiazepines Scrn U Cocaine Metab Screen U Marijuana (THC) Screen 01/15/25 01/15/25 01/15/25 17:38 18:34 20:54 WBC RBC Hgb Hct MCV MCH MCHC RDW Std Deviation Plt Count Neut % (Auto) Lymph % (Auto) [place] % (Auto) Eos % (Auto) Baso % (Auto) Neut # (Auto) Lymph # (Auto) [place] # (Auto) Eos # (Auto) Baso # (Auto) Immature Gran # (Auto) Absolute Nucleated RBC Immature Gran % Nucleated RBC % Puncture Site Right Radial ABG pH 7.38 D ABG pCO2 30 L D ABG pO2 95 D ABG HCO3 18 L ABG O2 Saturation 99 H ABG Base Excess -6 L VBG pH VBG pCO2 VBG pO2 VBG O2 Sat ([place]) VBG Base Excess FiO2 21 Sodium 146 H Potassium 4.6 Chloride 108 H Carbon Dioxide 13.5 L* Anion Gap 25 H BUN 24 H Creatinine 1.2 Estim Creat Clear Calc 58.9 L eGFR 59 L BUN/Creatinine Ratio 20 Glucose 169 H D Calculated Osmolality 298 H Lactic Acid 3.9 H Calcium 9.0 Corrected Calcium 9.2 Phosphorus 2.0 L Magnesium Albumin 3.8 Beta-Hydroxybutyrate/Acetoacetate Ur Collection Type Catheter Urine Color Lt-Yellow Urine Clarity Clear Urine pH 5.5 Ur Specific [place] 1.022 Urine Protein Trace Urine Glucose (UA) 3+ A Urine Ketones 4+ A Urine Blood Trace Urine Nitrite Negative Urine Bilirubin 1+ A Urine Urobilinogen (Auto) 4.0 Ur Leukocyte Esterase Negative Urine RBC 3 Urine WBC 2 Ur Squamous Epith Cells 1 Urine Bacteria None Hyaline Casts < 1 Granular Casts < 1 Ur Culture Indicated? Not Indicated Ur Random Sodium Ur Random Potassium Ur Random Chloride Urine HCG, Qual Negative Urine Opiates Screen Negative Urine Fentanyl Screen Negative Ur Barbiturates Screen Negative U Amphetamin/Meth Scrn Negative U Benzodiazepines Scrn Negative U Cocaine Metab Screen Negative U Marijuana (THC) Screen Negative 01/15/25 01/16/25 01/16/25 22:37 02:14 06:25 WBC 12.9 H RBC 3.97 L Hgb 12.0 D Hct 35.7 L MCV 90 MCH 30.2 MCHC 33.6 RDW Std Deviation 44.6 Plt Count 269 D Neut % (Auto) 81 H Lymph % (Auto) 12 [place] % (Auto) 7 Eos % (Auto) 0 Baso % (Auto) 0 Neut # (Auto) 10.4 H Lymph # (Auto) 1.5 [place] # (Auto) 0.9 H Eos # (Auto) 0.0 Baso # (Auto) 0.0 Immature Gran # (Auto) 0.05 H Absolute Nucleated RBC 0.00 Immature Gran % 0 Nucleated RBC % 0 Puncture Site ABG pH ABG pCO2 ABG pO2 ABG HCO3 ABG O2 Saturation ABG Base Excess VBG pH 7.35 7.41 7.42 VBG pCO2 36 37 37 VBG pO2 50 69 H 79 H VBG O2 Sat ([place]) 88 L 96 98 H VBG Base Excess -5 L -1 0 FiO2 Sodium 147 H 148 H 148 H Potassium 4.4 4.0 3.9 Chloride 110 H 112 H 111 H Carbon Dioxide 19.2 L 21.5 22.2 Anion Gap 18 H 15 15 BUN 22 17 14 Creatinine 1.2 1.1 1.1 Estim Creat Clear Calc 58.9 L 64.3 64.3 eGFR 59 L > 60 > 60 BUN/Creatinine Ratio 18 15 13 Glucose 155 H 155 H 159 H Calculated Osmolality 298 H 298 H 297 H Lactic Acid 2.2 H 1.7 Calcium 8.2 L 8.2 L 8.2 L Corrected Calcium 8.4 L 8.7 8.8 Phosphorus 2.0 L 2.1 L 1.9 L Magnesium 1.6 1.6 1.7 Albumin 3.7 3.4 L 3.2 L Beta-Hydroxybutyrate/Acetoacetate 2.9 H Ur Collection Type Urine Color Urine Clarity Urine pH Ur Specific [place] Urine Protein Urine Glucose (UA) Urine Ketones Urine Blood Urine Nitrite Urine Bilirubin Urine Urobilinogen (Auto) Ur Leukocyte Esterase Urine RBC Urine WBC Ur Squamous Epith Cells Urine Bacteria Hyaline Casts Granular Casts Ur Culture Indicated? Ur Random Sodium Ur Random Potassium Ur Random Chloride Urine HCG, Qual Urine Opiates Screen Urine Fentanyl Screen Ur Barbiturates Screen U Amphetamin/Meth Scrn U Benzodiazepines Scrn U Cocaine Metab Screen U Marijuana (THC) Screen 01/16/25 01/16/25 10:05 13:45 WBC RBC Hgb Hct MCV MCH MCHC RDW Std Deviation Plt Count Neut % (Auto) Lymph % (Auto) [place] % (Auto) Eos % (Auto) Baso % (Auto) Neut # (Auto) Lymph # (Auto) [place] # (Auto) Eos # (Auto) Baso # (Auto) Immature Gran # (Auto) Absolute Nucleated RBC Immature Gran % Nucleated RBC % Puncture Site ABG pH ABG pCO2 ABG pO2 ABG HCO3 ABG O2 Saturation ABG Base Excess VBG pH Cancelled VBG pCO2 Cancelled VBG pO2 Cancelled VBG O2 Sat ([place]) Cancelled VBG Base Excess Cancelled FiO2 Sodium 147 H 144 Potassium 3.7 3.9 Chloride 111 H 109 H Carbon Dioxide 24.9 25.4 Anion Gap 11 10 BUN 12 12 Creatinine 0.9 0.9 Estim Creat Clear Calc 78.6 78.6 eGFR > 60 > 60 BUN/Creatinine Ratio 13 13 Glucose 160 H 193 H Calculated Osmolality 295 291 Lactic Acid Calcium 8.4 8.0 L Corrected Calcium 9.0 8.6 Phosphorus 1.0 L 1.1 L Magnesium 2.0 3.8 H Albumin 3.3 L 3.2 L Beta-Hydroxybutyrate/Acetoacetate 0.3 Ur Collection Type Urine Color Urine Clarity Urine pH Ur Specific [place] Urine Protein Urine Glucose (UA) Urine Ketones Urine Blood Urine Nitrite Urine Bilirubin Urine Urobilinogen (Auto) Ur Leukocyte Esterase Urine RBC Urine WBC Ur Squamous Epith Cells Urine Bacteria Hyaline Casts Granular Casts Ur Culture Indicated? Ur Random Sodium Ur Random Potassium Ur Random Chloride Urine HCG, Qual Urine Opiates Screen Urine Fentanyl Screen Ur Barbiturates Screen U Amphetamin/Meth Scrn U Benzodiazepines Scrn U Cocaine Metab Screen U Marijuana (THC) Screen ABG Interpretation ABG results: 01/15/25 01/15/25 01/15/25 12:08 20:54 22:37 ABG pH 7.14 L* 7.38 D ABG pCO2 16 L* 30 L D ABG pO2 126 H 95 D ABG HCO3 5 L* 18 L ABG O2 Saturation 98 99 H ABG Base Excess -22 L -6 L VBG pH 7.35 VBG pCO2 36 VBG pO2 50 VBG Base Excess -5 L 01/16/25 01/16/25 01/16/25 02:14 06:25 13:45 ABG pH ABG pCO2 ABG pO2 ABG HCO3 ABG O2 Saturation ABG Base Excess VBG pH 7.41 7.42 Cancelled VBG pCO2 37 37 Cancelled VBG pO2 69 H 79 H Cancelled VBG Base Excess -1 0 Cancelled Quality Measures Quality Measures VTE prophylaxis Assessment & Plan Assessment Current Active Medications: Generic Name Dose Route Start Last Admin Trade Name Freq PRN Reason Stop Dose Admin Dextrose 25 ml 01/16/25 14:42 Dextrose 50%-Water Inj 50 Ml Syringe IV 02/15/25 14:41 Q15MIN PRN BG 50-70 responsive npo pt Dextrose 50 ml 01/16/25 14:42 Dextrose 50%-Water Inj 50 Ml Syringe IV 02/15/25 14:41 Q15MIN PRN BG <50 OR BG <70 & pt unresponsive Glucagon 1 mg 01/16/25 14:42 Glucagon Inj 1 Mg Vial IM Q15MIN PRN BG <70, and no IV access Heparin Sodium (Porcine) 5,000 unit 01/15/25 21:00 01/16/25 08:13 Heparin Sod Inj 5000 Unit/Ml Vial SC 01/29/25 20:59 5,000 unit BID DERRICK Administration Potassium Phosphate 15 mmol in 250 mls @ 62.5 mls/hr 01/16/25 15:09 Pot Phos 15 Mmol In Ns 250 Ml IV 01/16/25 23:08 Q4H DERRICK Insulin Degludec 35 unit 01/17/25 21:00 Insulin Degludec 5 Unit/0.05 Ml (Per 5 Units) SC 02/16/25 20:59 HS [facility] Insulin Human Lispro 5 unit 01/16/25 17:30 Insulin Lispro (Admelog) 1 Unit/0.01 Ml Unit SC 02/15/25 17:29 TIDWM DERRICK Insulin Human Lispro 0 unit 01/16/25 17:00 Insulin Lispro (Admelog) 1 Unit/0.01 Ml Unit SC 02/15/25 16:59 AC DERRICK Protocol Metoclopramide HCl 10 mg 01/16/25 14:45 Metoclopramide Inj 5 Mg/Ml Vial 2 Ml IVP 02/15/25 14:44 Q6HR PRN GASTRIC MOTILITY Protocol Ondansetron HCl 4 mg 01/15/25 13:43 01/16/25 05:00 Ondansetron Inj 2 Mg/Ml Inj 2 Ml IVP 02/14/25 13:42 4 mg Q6H PRN Administration NAUSEA OR VOMITING Protocol Pantoprazole Sodium 40 mg 01/16/25 09:00 01/16/25 08:15 Pantoprazole Inj 40 Mg Vial IVP 02/15/25 08:59 40 mg QDAY DERRICK Administration Plan Patient is a 39 year old F with PMH of IDDM brought from home after 1-2 days of not feeling well, and admitted for management of DKA. #DKA in setting of #IDDM (T1 vs T2DM) potentially causing #Gastric motility Patient was diagnosed with IDDM in 2014 after pregnancies; unclear if it is Type I or Type 2. Patient was brought from home after feeling unwell, and admitted to ICU. BG on admission was 734, anion gap on admission was 30, and was started on insulin drip and IV fluids. On 01/16/25, drip was stopped and patient was transitioned to degludec 35, lispro 5 TID, and sliding scale and downgraded to floors. Plan: Degludec 35 daily, lispro 5 TID, sliding scale step 2 Metoclopramide 10 q6prn #GERD #Emesis Patient has history of GERD, and had emesis with potential blood seen during DKA episode. Plan: Started protonix 40 IV GI consulted, will do EGD before discharge. Disposition: Medicine DVT prophylaxis: GI prophylaxis: Protonix Diet: Carb consistent Lines: PIV CODE STATUS: Full This case was discussed with my attending physician, Dr. Velarde, and senior resident, Dr. Nichols. Hunter Monaco, PGY1 Senior Resident Attestation: The patient is a 39-year-old female with significant past medical history of insulin-dependent diabetes mellitus who presented to ED with chief complaint of not feeling well and abdominal pain was found to have DKA. The patient reported that as she was not feeling well, she did not take her insulin for only 1 time. She was placed on DKA protocol, and after DKA was resolved, was downgraded to medical floor with insulin degludec 40 units daily, lispro 5 units 3 times daily and sliding scale insulin. GI Dr. Chaves to proceed with EGD as patient was found to have hematemesis during presentation, though likely to be traumatic or 2/2 retching. I discussed with and supervised the risk management intern physician involved in the care of this patient. I personally saw and examined the patient and discussed the assessment and plan with the entire medicine team, including my attending. I agree with the assessment and plan as documented above. Yony Nichols MD PGY3 Internal Medicine Attending Provider Attestation/Addendum I reviewed labs, imaging, EKG, home medications and prior available records. Face to face evaluation was performed by me. I have personally examined the patient and discussed assessment and plan with the IM team. I reviewed the resident note and agree with the plan with exceptions as below. DKA, resolved Insulin-dependent diabetes mellitus Leukocytosis Hematemesis Continue 35 degludec plus 5 units with meals plus sliding scale insulin Monitor fingerstick Ensure medication compliance Trend WBC Continue IV Protonix Consulted GI for EGD
[2025-01-16 16:12] LABS: Misc Send Out* See Sep Rpt
[2025-01-16 16:12] LABS: Misc Send Out* See Sep Rpt
--- NOTE | 2025-01-16 16:17 | PC.SS ---
APPEALS OFFICER conducted bedside contact with the patient conduct initial assessment and to discuss discharge planning.? Patient confirmed demographic information.? Patient resides at home with partner, Natacha Bourgeois and 4 children.? Patient does not utilize any form of DME to assist with ambulation.? Patient does not utilize home oxygen.? Patient describes the ability to complete ADL?s independently.? Patient identified partner, Natacha Bourgeois; as surrogate medical decision maker.? Patient utilizes [facility] for PCP services.? Patient does not participate with dialysis.? Patient does not possess any specialty providers.? Patient possesses history of diabetes, insulin dependent.? Patient utilizes [facility] for medication services.? Plan is for the patient to return home at the time of discharge.? Family will provide transportation on behalf of the patient.? No further discharge needs identified by the patient.? No further intervention required at this time, licensed master social worker will be available to address any further concerns.? Next of Kin: Natacha Bourgeois D/C Plan: Home
[2025-01-16] MEDS: INSULIN LISPRO (AdmeLOG) 1 UNIT/0.01 ML UNIT SC (17:53)
[2025-01-16] MEDS: INSULIN LISPRO (AdmeLOG) 1 UNIT/0.01 ML UNIT 5 UNIT SC (17:53)
--- NOTE | 2025-01-16 20:13 | PD.IMPROG ---
Documentation for date of: 01/16/25 Subjective Subjective Interval history: Patient evaluated She is out of DKA Alert and oriented Considerable drop in hemoglobin hematocrit to 12.0 and 34.7 most likely a combination of hydration as well as GI bleed Exam Vital Signs Temp Pulse Resp BP Pulse Ox O2 Del Method 97.7 F 101 H 14 123/80 99 Room Air 01/16/25 08:00 01/16/25 16:00 01/16/25 16:00 01/16/25 16:00 01/16/25 16:00 01/16/25 08:00 Objective Labs 01/16/25 02:14 01/16/25 13:45 Labs: Laboratory Results - last 24 hr 01/15/25 01/15/25 01/16/25 20:54 22:37 02:14 WBC 12.9 H RBC 3.97 L Hgb 12.0 D Hct 35.7 L MCV 90 MCH 30.2 MCHC 33.6 RDW Std Deviation 44.6 Plt Count 269 D Neut % (Auto) 81 H Lymph % (Auto) 12 [place] % (Auto) 7 Eos % (Auto) 0 Baso % (Auto) 0 Neut # (Auto) 10.4 H Lymph # (Auto) 1.5 [place] # (Auto) 0.9 H Eos # (Auto) 0.0 Baso # (Auto) 0.0 Immature Gran # (Auto) 0.05 H Absolute Nucleated RBC 0.00 Immature Gran % 0 Nucleated RBC % 0 Puncture Site Right Radial ABG pH 7.38 D ABG pCO2 30 L D ABG pO2 95 D ABG HCO3 18 L ABG O2 Saturation 99 H ABG Base Excess -6 L VBG pH 7.35 7.41 VBG pCO2 36 37 VBG pO2 50 69 H VBG O2 Sat ([place]) 88 L 96 VBG Base Excess -5 L -1 FiO2 21 Sodium 147 H 148 H Potassium 4.4 4.0 Chloride 110 H 112 H Carbon Dioxide 19.2 L 21.5 Anion Gap 18 H 15 BUN 22 17 Creatinine 1.2 1.1 Estim Creat Clear Calc 58.9 L 64.3 eGFR 59 L > 60 BUN/Creatinine Ratio 18 15 Glucose 155 H 155 H Calculated Osmolality 298 H 298 H Lactic Acid 2.2 H 1.7 Calcium 8.2 L 8.2 L Corrected Calcium 8.4 L 8.7 Phosphorus 2.0 L 2.1 L Magnesium 1.6 1.6 Albumin 3.7 3.4 L Beta-Hydroxybutyrate/Acetoacetate 2.9 H 01/16/25 01/16/25 01/16/25 06:25 10:05 13:45 WBC RBC Hgb Hct MCV MCH MCHC RDW Std Deviation Plt Count Neut % (Auto) Lymph % (Auto) [place] % (Auto) Eos % (Auto) Baso % (Auto) Neut # (Auto) Lymph # (Auto) [place] # (Auto) Eos # (Auto) Baso # (Auto) Immature Gran # (Auto) Absolute Nucleated RBC Immature Gran % Nucleated RBC % Puncture Site ABG pH ABG pCO2 ABG pO2 ABG HCO3 ABG O2 Saturation ABG Base Excess VBG pH 7.42 Cancelled VBG pCO2 37 Cancelled VBG pO2 79 H Cancelled VBG O2 Sat ([place]) 98 H Cancelled VBG Base Excess 0 Cancelled FiO2 Sodium 148 H 147 H 144 Potassium 3.9 3.7 3.9 Chloride 111 H 111 H 109 H Carbon Dioxide 22.2 24.9 25.4 Anion Gap 15 11 10 BUN 14 12 12 Creatinine 1.1 0.9 0.9 Estim Creat Clear Calc 64.3 78.6 78.6 eGFR > 60 > 60 > 60 BUN/Creatinine Ratio 13 13 13 Glucose 159 H 160 H 193 H Calculated Osmolality 297 H 295 291 Lactic Acid Calcium 8.2 L 8.4 8.0 L Corrected Calcium 8.8 9.0 8.6 Phosphorus 1.9 L 1.0 L 1.1 L Magnesium 1.7 2.0 3.8 H Albumin 3.2 L 3.3 L 3.2 L Beta-Hydroxybutyrate/Acetoacetate 0.3 Impressions Impression: Hematemesis DKA Anemia blood loss Plan N.p.o. midnight tonight Consent obtained for fiberoptic esophagogastroduodenoscopy biopsy therapeutic intervention under intravenous moderate sedation ABG Interpretation ABG results: 01/15/25 01/15/25 01/15/25 12:08 20:54 22:37 ABG pH 7.14 L* 7.38 D ABG pCO2 16 L* 30 L D ABG pO2 126 H 95 D ABG HCO3 5 L* 18 L ABG O2 Saturation 98 99 H ABG Base Excess -22 L -6 L VBG pH 7.35 VBG pCO2 36 VBG pO2 50 VBG Base Excess -5 L 01/16/25 01/16/25 01/16/25 02:14 06:25 13:45 ABG pH ABG pCO2 ABG pO2 ABG HCO3 ABG O2 Saturation ABG Base Excess VBG pH 7.41 7.42 Cancelled VBG pCO2 37 37 Cancelled VBG pO2 69 H 79 H Cancelled VBG Base Excess -1 0 Cancelled Assessment & Plan A&P Narrative # Hematemesis differential diagnoses include Elvira-Clinton tear Hemorrhagic gastritis peptic ulcer disease or distal esophageal ulcers # DKA Suggestions Hemoglobin hematocrit will drop once that hemoconcentration with IV fluids is resolved I will wait till the patient's DKA gets resolved before performing an upper endoscopy prior to discharge IV Protonix Serial CBC Thank you very much for the opportunity to participate in care of this patient Time Spent With Patient Time: Total time spent is greater than 50% in coordination of care (as documented) at patient's floor/unit and/or counseling patient:
[2025-01-17] VITALS (17 sets, daily range): BP systolic 108–143; BP diastolic 67–102; PULSE 68–98; RESP 10–98; TEMP 36.2–37.1; O2SAT 92–100
[2025-01-17 05:41] LABS: Basophils # (Auto) 0.0 Thou/mm3 (0.0-0.2); Basophils % (Auto) 0 % (0-2.5); Eosinophils # (Auto) 0.1 Thou/mm3 (0.0-0.5); Eosinophils % (Auto) 1 % (0-10); Hematocrit 32.0 % (36.0-46.0); Hemoglobin 10.9 g/dL (12.0-16.0); Immature Granulocytes Auto 0.02 Thou/mm3 (0.00-0.00); Lymphocytes # (Auto) 2.1 Thou/mm3 (1.0-4.8); Lymphocytes % (Auto) 30 % (10-50); Mean Corpuscular HGB Conc 34.1 g/dl (31.0-37.0); Mean Corpuscular Hemoglobin 31.1 pg (25.0-35.0); Mean Corpuscular Volume 91 fL (80-100); Monocytes # (Auto) 0.4 Thou/mm3 (0.0-0.8); Monocytes % (Auto) 6 % (0-12); Neutrophils # (Auto) 4.4 Thou/mm3 (1.8-7.7); Neutrophils % (Auto) 63 % (37-80); Nucleated Red Blood Cell # 0.00 Thou/mm3 (0.00-0.00); Nucleated Red Blood Cell % 0 /100 WBC (0); Platelet Count 178 Thou/mm3 (140-440); RDW Standard Deviation 46.8 fL (36.4-46.3); Red Blood Count 3.50 Miln/mm3 (4.00-5.20); White Blood Count 7.0 Thou/mm3 (3.6-11.0)
--- NOTE | 2025-01-17 06:05 | PC.NURSE ---
Called Dr. Winkler to ask if they wanted to add fluids for pt since she is NPO and diabetic, stated that he would check the chart and maybe add fluids or that he might pass the report to the day team doctors.
[2025-01-17 06:27] LABS: Alanine Aminotransferase 13 U/L (10-49); Albumin, Serum 3.0 gm/dL (3.5-5.0); Albumin/Globulin Ratio 1.4 (1.2-2.2); Alkaline Phosphatase 119 U/L (46-116); Anion Gap 11 (7-16); Aspartate Amino Transferase 24 U/L (0-34); BUN/Creatinine Ratio 14 Ratio (12-20); Bilirubin,Total 0.2 mg/dL (0.3-1.2); Blood Urea Nitrogen 11 mg/dL (9-23); Calcium 7.7 mg/dL (8.3-10.6); Calcium (Corrected) 8.5 mg/dL (8.5-10.1); Carbon Dioxide 25.5 mMol/L (20.0-31.0); Chloride 109 mMol/L (98-107); Creatinine (Component) 0.8 mg/dL (0.6-1.3); Estimated Creatinine Clearance 88.4 mL/min (>60); Globulin 2.2 gm/dL (2.3-3.5); Glucose 93 mg/dL (74-106); Osmolality,Calculated 288 (275-295); Phosphorous 3.5 mg/dL (2.4-5.1); Potassium 3.4 mMol/L (3.4-5.1); Sodium 145 mMol/L (136-145); Total Protein 5.2 gm/dL (5.7-8.2); eGFR > 60 See Note
[2025-01-17] MEDS: HEPARIN SOD INJ 5000 UNIT/ML VIAL SC ×2 (08:51→21:28)
[2025-01-17 09:14] LABS: Magnesium 2.0 mg/dL (1.6-2.6)
[2025-01-17] MEDS: ACETAMINOPHEN 325 MG TABLET 650 MG PO (09:47)
--- NOTE | 2025-01-17 16:10 | SUR.PHASEI ---
1610: pt received from OR via [employer]. received report from KRISHAN Estrada. pt sleepy but arousable when called her name. no s/s of resp. distress or discomfort. no s/s of pain or discomfort.
--- NOTE | 2025-01-17 16:20 | SUR.PHASEI ---
1620: Called Dr. Chaves and made aware of BS 305. Dr. Chaves ordered 10 units of Insulin regular SC.
[2025-01-17] MEDS: INSULIN HUM REGULAR 1 UNIT/0.01 ML (PER UNIT) 10 UNIT SC (16:38)
--- NOTE | 2025-01-17 16:43 | SUR.PHASEI ---
1643: report given to KRISAHN Fisher
--- NOTE | 2025-01-17 16:43 | PD.ADDPROG ---
Addendum Progress Note Addendum Date of report being addended: 01/17/25 Narrative: I reviewed labs, imaging, EKG, home medications and prior available records. Face to face evaluation was performed by me. I have personally examined the patient and discussed assessment and plan with the IM team. I reviewed the resident note and agree with the plan with exceptions as below. DKA, resolved Insulin-dependent diabetes mellitus Leukocytosis Hematemesis Continue 35 degludec plus 5 units with meals plus sliding scale insulin Monitor fingerstick Ensure medication compliance Trend WBC Continue IV Protonix Consulted GI for EGD. Plan for EGD on 01/17
--- NOTE | 2025-01-17 16:44 | SUR.PHASEI ---
1644: pt transferred back room 375 via [facility]. pt alert and oriented. no s/s of resp. distress or discomfort. no s/s of pain or discomfort.
--- NOTE | 2025-01-17 17:13 | PD.RESPRO ---
Documentation for date of: 01/17/25 Subjective Subjective Interval history: Patient seen at bedside; no acute events overnight. Exam Vital Signs Temp Pulse Resp BP Pulse Ox O2 Del Method O2 Flow Rate 97.1 F 79 18 111/79 98 Room Air 2 01/17/25 16:10 01/17/25 16:40 01/17/25 16:40 01/17/25 16:40 01/17/25 16:40 01/17/25 12:05 01/17/25 16:20 Narrative Exam General: A/O x3, no acute distress, well-nourished, well-developed Eyes: PERRL, EOMI. Anicteric, vision grossly intact. Ears: No ear pain, no ear discharge, Hearing grossly intact. Nose: No nasal discharge. Mouth/Throat: Moist mucous membranes, no redness, no lesions. Neck: Neck supple, non-tender, no cervical lymphadenopathy. Lungs: Clear JORDI to auscultation and percussion, No accessory muscle use. Cardio: Normal S1/S2, regular rhythm, no murmurs, no JVD or carotid bruits. Abdomen: Soft, non-tender, no palpable masses, peristalsis present, no guarding or rebound. Extremities: Symmetrical, no significant deformities, no peripheral edema , non-tender, peripheral pulses present. Skin: No rashes, no lesions, warm to touch. Neuro: No focal neurological deficits. Psych: Cooperative, appropriate mood and effect. Objective Labs 01/18/25 04:28 01/18/25 04:28 Labs: Laboratory Results - last 24 hr 01/17/25 04:50 WBC 7.0 D RBC 3.50 L Hgb 10.9 L Hct 32.0 L MCV 91 MCH 31.1 MCHC 34.1 RDW Std Deviation 46.8 H Plt Count 178 D Neut % (Auto) 63 Lymph % (Auto) 30 [place] % (Auto) 6 Eos % (Auto) 1 Baso % (Auto) 0 Neut # (Auto) 4.4 Lymph # (Auto) 2.1 [place] # (Auto) 0.4 Eos # (Auto) 0.1 Baso # (Auto) 0.0 Immature Gran # (Auto) 0.02 H Absolute Nucleated RBC 0.00 Immature Gran % 0 Nucleated RBC % 0 Sodium 145 Potassium 3.4 D Chloride 109 H Carbon Dioxide 25.5 Anion Gap 11 BUN 11 Creatinine 0.8 Estim Creat Clear Calc 88.4 eGFR > 60 BUN/Creatinine Ratio 14 Glucose 93 D Calculated Osmolality 288 Calcium 7.7 L Corrected Calcium 8.5 Phosphorus 3.5 Magnesium 2.0 Total Bilirubin 0.2 L AST 24 ALT 13 Alkaline Phosphatase 119 H D Total Protein 5.2 L Albumin 3.0 L Globulin 2.2 L Albumin/Globulin Ratio 1.4 ABG Interpretation ABG results: 01/15/25 01/15/25 01/15/25 12:08 20:54 22:37 ABG pH 7.14 L* 7.38 D ABG pCO2 16 L* 30 L D ABG pO2 126 H 95 D ABG HCO3 5 L* 18 L ABG O2 Saturation 98 99 H ABG Base Excess -22 L -6 L VBG pH 7.35 VBG pCO2 36 VBG pO2 50 VBG Base Excess -5 L 01/16/25 01/16/25 01/16/25 02:14 06:25 13:45 ABG pH ABG pCO2 ABG pO2 ABG HCO3 ABG O2 Saturation ABG Base Excess VBG pH 7.41 7.42 Cancelled VBG pCO2 37 37 Cancelled VBG pO2 69 H 79 H Cancelled VBG Base Excess -1 0 Cancelled Quality Measures Quality Measures VTE prophylaxis Assessment & Plan Assessment Current Active Medications: Generic Name Dose Route Start Last Admin Trade Name Elmer PRN Reason Stop Dose Admin Acetaminophen 650 mg 01/17/25 09:44 01/17/25 09:47 Acetaminophen 325 Mg Tablet PO 02/16/25 09:43 650 mg Q6HR PRN Administration PAIN Dextrose 50 ml 01/17/25 11:17 Dextrose 50%-Water Inj 50 Ml Syringe IV 02/16/25 11:16 Q15MIN PRN BG <50 OR BG <70 & pt unresponsive Dextrose 25 ml 01/17/25 11:17 Dextrose 50%-Water Inj 50 Ml Syringe IV 02/16/25 11:16 Q15MIN PRN BG 50-70 responsive npo pt Glucagon 1 mg 01/17/25 11:17 Glucagon Inj 1 Mg Vial IM Q15MIN PRN BG <70, and no IV access Heparin Sodium (Porcine) 5,000 unit 01/15/25 21:00 01/17/25 08:51 Heparin Sod Inj 5000 Unit/Ml Vial SC 01/29/25 20:59 5,000 unit BID DERRICK Administration Insulin Degludec 35 unit 01/17/25 09:00 01/17/25 08:00 Insulin Degludec 5 Unit/0.05 Ml (Per 5 Units) SC 02/16/25 08:59 Not Given DAILY DERRICK Insulin Human Lispro 5 unit 01/16/25 17:30 01/17/25 07:56 Insulin Lispro (Admelog) 1 Unit/0.01 Ml Unit SC 02/15/25 17:29 Not Given On Hold: 01/17/25 11:17 TIDWM DERRICK Insulin Human Lispro 0 unit 01/17/25 12:00 01/17/25 12:32 Insulin Lispro (Admelog) 1 Unit/0.01 Ml Unit SC 02/16/25 11:59 Not Given Q6HR DERRICK Protocol Metoclopramide HCl 10 mg 01/16/25 14:45 Metoclopramide Inj 5 Mg/Ml Vial 2 Ml IVP 02/15/25 14:44 Q6HR PRN GASTRIC MOTILITY Protocol Ondansetron HCl 4 mg 01/15/25 13:43 01/16/25 05:00 Ondansetron Inj 2 Mg/Ml Inj 2 Ml IVP 02/14/25 13:42 4 mg Q6H PRN Administration NAUSEA OR VOMITING Protocol Pantoprazole Sodium 40 mg 01/16/25 21:00 01/17/25 08:51 Pantoprazole Inj 40 Mg Vial IVP 02/15/25 20:59 40 mg BID DERRICK Administration Plan Patient is a 39 year old F with PMH of IDDM brought from home after 1-2 days of not feeling well, and admitted for management of DKA. #DKA in setting of #IDDM (T1 vs T2DM) potentially causing #Gastric motility Patient was diagnosed with IDDM in 2014 after pregnancies; unclear if it is Type I or Type 2. Patient was brought from home after feeling unwell, and admitted to ICU. BG on admission was 734, anion gap on admission was 30, and was started on insulin drip and IV fluids. On 01/16/25, drip was stopped and patient was transitioned to degludec 35, lispro 5 TID, and sliding scale and downgraded to floors. Plan: Degludec 35 daily, lispro 5 TID, sliding scale step 2 Metoclopramide 10 q6prn #GERD #Emesis Patient has history of GERD, and had emesis with potential blood seen during DKA episode. Plan: Started protonix 40 IV GI consulted, will do EGD before discharge. Disposition: Medicine DVT prophylaxis: GI prophylaxis: Protonix Diet: Carb consistent Lines: PIV CODE STATUS: Full This case was discussed with my attending physician, Dr. Velarde, and senior resident, Dr. Dennison. Hunter Monaco, PGY1 Attending Provider Attestation/Addendum I reviewed labs, imaging, EKG, home medications and prior available records. Face to face evaluation was performed by me. I have personally examined the patient and discussed assessment and plan with the IM team. I reviewed the resident note and agree with the plan with exceptions as below. DKA, resolved Insulin-dependent diabetes mellitus Leukocytosis Hematemesis Continue 35 degludec plus 5 units with meals plus sliding scale insulin Monitor fingerstick Ensure medication compliance Trend WBC Continue IV Protonix Consulted GI for EGD. Plan for EGD on 01/17
[2025-01-17] MEDS: INSULIN LISPRO (AdmeLOG) 1 UNIT/0.01 ML UNIT SC (17:45)
--- NOTE | 2025-01-17 19:22 | PC.NURSE ---
Pt previous q6 blood sugar checks due to being NPO. Pt. now on Consistent carb diet. KRISHAN Mcclure contacted Dr. Soto to ask if B/s checks can be changed to ACHS. Dr. Soto okayed.
[2025-01-18] VITALS: BP 116/75; PULSE 78; RESP 18; TEMP 36.9; O2SAT 97
[2025-01-18 04:00] VITALS: BP 124/82; PULSE 82; RESP 16; TEMP 36.4; O2SAT 95
[2025-01-18 05:12] LABS: Basophils # (Auto) 0.0 Thou/mm3 (0.0-0.2); Basophils % (Auto) 1 % (0-2.5); Eosinophils # (Auto) 0.1 Thou/mm3 (0.0-0.5); Eosinophils % (Auto) 2 % (0-10); Hematocrit 33.3 % (36.0-46.0); Hemoglobin 11.0 g/dL (12.0-16.0); Immature Granulocytes Auto 0.01 Thou/mm3 (0.00-0.00); Lymphocytes # (Auto) 1.2 Thou/mm3 (1.0-4.8); Lymphocytes % (Auto) 30 % (10-50); Mean Corpuscular HGB Conc 33.0 g/dl (31.0-37.0); Mean Corpuscular Hemoglobin 30.7 pg (25.0-35.0); Mean Corpuscular Volume 93 fL (80-100); Monocytes # (Auto) 0.2 Thou/mm3 (0.0-0.8); Monocytes % (Auto) 6 % (0-12); Neutrophils # (Auto) 2.4 Thou/mm3 (1.8-7.7); Neutrophils % (Auto) 61 % (37-80); Nucleated Red Blood Cell # 0.00 Thou/mm3 (0.00-0.00); Nucleated Red Blood Cell % 0 /100 WBC (0); Platelet Count 148 Thou/mm3 (140-440); RDW Standard Deviation 45.9 fL (36.4-46.3); Red Blood Count 3.58 Miln/mm3 (4.00-5.20); White Blood Count 4.0 Thou/mm3 (3.6-11.0)
[2025-01-18 05:38] LABS: Alanine Aminotransferase 13 U/L (10-49); Albumin, Serum 3.1 gm/dL (3.5-5.0); Albumin/Globulin Ratio 1.3 (1.2-2.2); Alkaline Phosphatase 138 U/L (46-116); Anion Gap 11 (7-16); Aspartate Amino Transferase 24 U/L (0-34); BUN/Creatinine Ratio 16 Ratio (12-20); Bilirubin,Total 0.4 mg/dL (0.3-1.2); Blood Urea Nitrogen 13 mg/dL (9-23); Calcium 7.8 mg/dL (8.3-10.6); Calcium (Corrected) 8.5 mg/dL (8.5-10.1); Carbon Dioxide 24.0 mMol/L (20.0-31.0); Chloride 104 mMol/L (98-107); Creatinine (Component) 0.8 mg/dL (0.6-1.3); Estimated Creatinine Clearance 88.4 mL/min (>60); Globulin 2.3 gm/dL (2.3-3.5); Glucose 364 mg/dL (74-106); Magnesium 2.0 mg/dL (1.6-2.6); Osmolality,Calculated 292 (275-295); Phosphorous 3.5 mg/dL (2.4-5.1); Potassium 4.8 mMol/L (3.4-5.1); Sodium 139 mMol/L (136-145); Total Protein 5.4 gm/dL (5.7-8.2); eGFR > 60 See Note
[2025-01-18] MEDS: INSULIN LISPRO (AdmeLOG) 1 UNIT/0.01 ML UNIT SC ×2 (07:19→11:46)
[2025-01-18] MEDS: INSULIN LISPRO (AdmeLOG) 1 UNIT/0.01 ML UNIT 6 UNIT SC (07:19)
[2025-01-18] MEDS: INSULIN DEGLUDEC 5 UNIT/0.05 ML (PER 5 UNITS) 35 UNIT SC (07:20)
[2025-01-18 08:02] VITALS: BP 134/89; PULSE 80; RESP 18; TEMP 37; O2SAT 96
[2025-01-18] MEDS: HEPARIN SOD INJ 5000 UNIT/ML VIAL SC (08:13)
[2025-01-18 08:25] VITALS: PULSE 84; RESP 18; RESP 95
--- NOTE | 2025-01-18 09:20 | PC.SS ---
Follow up note: Pt is possible dc if blood sugar improves. Pt will return home upon dc.
[2025-01-18 12:00] VITALS: BP 121/79; PULSE 92; RESP 16; TEMP 35.8; O2SAT 96
--- NOTE | 2025-01-18 14:39 | PD.HHDS ---
Planned Discharge Date 01/18/25 DS: Providers Provider Date of admission: 01/15/25 13:12 Primary care physician: Physician No Primary/Family Admitting Provider: Naila Perry MD Attending Provider on Admission: Naila Perry MD Consults: 01/15/25 11:32 Consult to Gastroenterology Stat Comment: Consulting Provider: Manfred Chaves 01/15/25 12:40 Referral Registered Dietitian Routine Comment: 01/16/25 14:37 Referral Registered Dietitian Routine Comment: Attending Provider on DC: Aiden Velarde MD Discharging Provider: Aiden Velarde MD Diagnosis Problem List Completed Was Problem List Reviewed/Reconciled?: Yes Hospital Course - Hospitalist Hospital Course Hospital course: Ms. Dominguez is a 39 year old woman with a pmh of T1 v T2 DM, that was diagnosed ~7 years ago, on insulin, who was BIBA from home afte 1-2 days of not feeling well . She states that she woke up today and she had nausea and vomiting that was billeous and nonbloody, no coffee grounds. patient is slightly encephalopathic, and is a poor historian, no family at bedside to provide collateral history She reports not taking her insulin because she was feeling ill. She was admitted for the management of DKA. Her gap closed and she was downgraded to the floor. Hospital course and medical problems #DKA in setting of #IDDM (T1 vs T2DM) potentially causing #Gastric motility Patient was diagnosed with IDDM in 2015 after pregnancies; unclear if it is Type I or Type 2. Patient was brought from home after feeling unwell, and admitted to ICU. BG on admission was 734, anion gap on admission was 30, and was started on insulin drip and IV fluids. On 01/16/25, drip was stopped and patient was transitioned to degludec 35, lispro 5 TID, and sliding scale and downgraded to floors. Plan: Continue home medications Monitor fingersticks at home Ensure medication and diet compliance #GERD #Emesis Patient has history of GERD, and had emesis with potential blood seen during DKA episode. Plan: GI consulted for EGD continue Protonix upon discharge Leukocytosis Improved. Likely in setting of DKA and dehydration. Management as above Time Spent with Patient Time attestation: Total time spent providing and/or coordinating discharge services: Time spent: Greater than 30 minutes Discharge Results Labs Diagrams: 01/18/25 04:28 01/18/25 04:28 Labs: Short CBC 01/18/25 Range/Units 04:28 WBC 4.0 D (3.6-11.0) Thou/mm3 Hgb 11.0 L (12.0-16.0) g/dL Hct 33.3 L (36.0-46.0) % Plt Count 148 D (140-440) Thou/mm3 BMP 01/18/25 04:28 Sodium 139 Potassium 4.8 D Chloride 104 Carbon Dioxide 24.0 BUN 13 Creatinine 0.8 Glucose 364 H D Calcium 7.8 L Liver Function 01/18/25 Range/Units 04:28 Total Bilirubin 0.4 (0.3-1.2) mg/dL AST 24 (0-34) U/L ALT 13 (10-49) U/L Alkaline Phosphatase 138 H (46-116) U/L Albumin 3.1 L (3.5-5.0) gm/dL Exam Vital Signs Temp Pulse Resp BP Pulse Ox O2 Del Method O2 Flow Rate 96.4 F L 92 16 121/79 96 Room Air 2 01/18/25 12:00 01/18/25 12:00 01/18/25 12:00 01/18/25 12:00 01/18/25 12:00 01/18/25 12:00 01/17/25 16:20 Narrative General: Alert and oriented x3. In no acute distress. Eyes: Pupils are equal and reactive to light bilaterally. HEENT: Atraumatic, normocephalic. No JVD noted. Cardiovascular: Normal S1 and S2. Normal rate and regular rhythm. No murmurs appreciated. No peripheral pitting edema noted. No JVD noted. Respiratory: No respiratory distress. Lungs are clear to auscultation bilaterally. No wheezing or crackles heard. Abdomen: Soft, nontender, nondistended. Skin: No rash. Musculoskeletal: No gross injuries. Able to move all 4 extremities. Neuro: Alert and oriented x3. Sensation is intact throughout. Strength is 5/5 and symmetric. No focal neuro deficits. Psych: Normal affect and mood. Discharge Plan Plan Patient Disposition: HOME (Self Care) Patient condition on transfer: Stable Care Plan Goals: ? Recommend you see your PCP for referral to an e merchant. Request your PCP to review labs for MAY and IA-2A that will be resulting in a week to be started on oral antidiabetic medicines. Recommend that you get on insulin pump for better compliance. - You need to be compliant with your insulin regimen. DKA is very dangerous and you can possibly . - Follow up with your primary care physician within 1 week of discharge. If you do not have a primary care physician, please follow up with the [facility] Residents clinic ([phone]) - If you experience any new, worsening or persistent symptoms either call your primary doctor, or dial 911 or present to the emergency department. Prescriptions/Referrals Prescriptions/Med Rec: New pantoprazole 40 mg tablet,delayed release (DR/EC) 40 mg PO BID Qty: 60 0RF Continued (DME) pen needle, diabetic [Pen Needle] 32 gauge x 5/32 needle See Rx Instructions .Route Qty: 100 2RF Rx Instructions: As directed (DME) pen needle, diabetic 32 gauge x 5/16 needle See Rx Instructions .Route Qty: 150 2RF Rx Instructions: As directed (DME) FreeStyle Shannon 3 Sensor Device See Rx Instructions .Route Qty: 2 0RF Rx Instructions: As directed (DME) blood-glucose meter [Blood Glucose Monitoring] Kit See Rx Instructions .Route Qty: 1 0RF Rx Instructions: As directed (DME) Blood Glucose Test Strip See Rx Instructions .Route Qty: 50 1RF Rx Instructions: As directed (DME) lancets [Acti-Enrrique Lancets] [facility] gauge [facility] See Rx Instructions .Route Qty: 100 0RF Rx Instructions: As directed (DME) pen needle, diabetic [1st Tier Unifine Pentips] 29 gauge x 1/2 needle See Rx Instructions .Route Qty: 100 0RF Rx Instructions: As directed insulin glargine [Basaglar KwikPen U-100 Insulin] 100 unit/mL (3 mL) insulin pen 25 unit subcut BID Qty: 15 0RF insulin lispro [Admelog SoloStar U-100 Insulin] 100 unit/mL insulin pen 15 unit subcut TID Qty: 15 0RF Discontinued insulin lispro [Admelog SoloStar U-100 Insulin] 100 unit/mL insulin pen 15 unit subcut TID 30 Days Qty: 15 2RF Rx Instructions: 15 units with every meal 3 times daily Referrals: No Primary/Family,Physician [Primary Care Provider] Patient/Caregiver Discharge Instructions Other Discharge Activity Instructions:: ? Recommend you see your PCP for referral to an e merchant. Request your PCP to review labs for MAY and IA-2A that will be resulting in a week to be started on oral antidiabetic medicines. Recommend that you get on insulin pump for better compliance. - You need to be compliant with your insulin regimen. DKA is very dangerous and you can possibly . - Follow up with your primary care physician within 1 week of discharge. If you do not have a primary care physician, please follow up with the [facility] Residents clinic ([phone]) - If you experience any new, worsening or persistent symptoms either call your primary doctor, or dial 911 or present to the emergency department. Education Materials: Diabetes and Heart Disease, Diabetic Ketoacidosis, Diabetes and High Blood Pressure Print Language: Indonesian Stand Alone Forms: Laurita Award Info., Patient Portal Info Letter Discharge Order Discharge Orders: Discharge (Routine); Ordered 01/18/25 Ordered By: Aiden Velarde Quality Discharge Quality Measures none
--- NOTE | 2025-01-18 18:25 | PD.IMPROG ---
Documentation for date of: 01/18/25 Subjective Subjective Interval history: Late entry for the note Hemoglobin hematocrit 11.0 and 33.3 Upper endoscopy showed gastritis and esophagitis Exam Vital Signs Temp Pulse Resp BP Pulse Ox O2 Del Method O2 Flow Rate 96.4 F L 92 16 121/79 96 Room Air 2 01/18/25 12:00 01/18/25 12:00 01/18/25 12:00 01/18/25 12:00 01/18/25 12:00 01/18/25 12:00 01/17/25 16:20 Objective Labs 01/18/25 04:28 01/18/25 04:28 Labs: Laboratory Results - last 24 hr 01/18/25 04:28 WBC 4.0 D RBC 3.58 L Hgb 11.0 L Hct 33.3 L MCV 93 MCH 30.7 MCHC 33.0 RDW Std Deviation 45.9 Plt Count 148 D Neut % (Auto) 61 Lymph % (Auto) 30 [place] % (Auto) 6 Eos % (Auto) 2 Baso % (Auto) 1 Neut # (Auto) 2.4 Lymph # (Auto) 1.2 [place] # (Auto) 0.2 Eos # (Auto) 0.1 Baso # (Auto) 0.0 Immature Gran # (Auto) 0.01 H Absolute Nucleated RBC 0.00 Immature Gran % 0 Nucleated RBC % 0 Sodium 139 Potassium 4.8 D Chloride 104 Carbon Dioxide 24.0 Anion Gap 11 BUN 13 Creatinine 0.8 Estim Creat Clear Calc 88.4 eGFR > 60 BUN/Creatinine Ratio 16 Glucose 364 H D Calculated Osmolality 292 Calcium 7.8 L Corrected Calcium 8.5 Phosphorus 3.5 Magnesium 2.0 Total Bilirubin 0.4 AST 24 ALT 13 Alkaline Phosphatase 138 H Total Protein 5.4 L Albumin 3.1 L Globulin 2.3 Albumin/Globulin Ratio 1.3 Impressions Impression: Hematemesis secondary to esophagitis and gastritis Okay to discharge home to be followed by the PCP ABG Interpretation ABG results: 01/15/25 01/15/25 01/15/25 12:08 20:54 22:37 ABG pH 7.14 L* 7.38 D ABG pCO2 16 L* 30 L D ABG pO2 126 H 95 D ABG HCO3 5 L* 18 L ABG O2 Saturation 98 99 H ABG Base Excess -22 L -6 L VBG pH 7.35 VBG pCO2 36 VBG pO2 50 VBG Base Excess -5 L 01/16/25 01/16/25 01/16/25 02:14 06:25 13:45 ABG pH ABG pCO2 ABG pO2 ABG HCO3 ABG O2 Saturation ABG Base Excess VBG pH 7.41 7.42 Cancelled VBG pCO2 37 37 Cancelled VBG pO2 69 H 79 H Cancelled VBG Base Excess -1 0 Cancelled Assessment & Plan A&P Narrative # Hematemesis differential diagnoses include Elvira-Clinton tear Hemorrhagic gastritis peptic ulcer disease or distal esophageal ulcers # DKA Suggestions Hemoglobin hematocrit will drop once that hemoconcentration with IV fluids is resolved I will wait till the patient's DKA gets resolved before performing an upper endoscopy prior to discharge IV Protonix Serial CBC Thank you very much for the opportunity to participate in care of this patient Time Spent With Patient Time: Total time spent is greater than 50% in coordination of care (as documented) at patient's floor/unit and/or counseling patient:
== END 2025-01-18 15:42 | disposition home or self-care (01) | DRG 420 ==
LOC: SERX 12:55 → SERHOLD 14:58 → S2SX 14:58 → S3SX 01-16 21:41
PROVIDERS: Specialist; Student in an Organized Health Care Education/Training Program; Admitting Provider Internal Medicine; Visit Provider Internal Medicine
PROC: 0DJ08ZZ Inspection of Upper Intestinal Tract, Via Natural or Artificial Opening Endoscopic (ICD-10-PCS; CPT 43239; principal; 2025-01-17 16:00)
DX: E10.10 Type 1 diabetes mellitus with ketoacidosis without coma (principal); Z79.4 Long term (current) use of insulin; R00.0 Tachycardia, unspecified; N17.9 Acute kidney failure, unspecified; D72.829 Elevated white blood cell count, unspecified; K92.0 Hematemesis; E87.0 Hyperosmolality and hypernatremia; D50.0 Iron deficiency anemia secondary to blood loss (chronic); E83.39 Other disorders of phosphorus metabolism; E87.5 Hyperkalemia; K22.10 Ulcer of esophagus without bleeding; K29.71 Gastritis, unspecified, with bleeding; T38.3X6A Underdosing of insulin and oral hypoglycemic [antidiabetic] drugs, initial encounter; Z91.128 Patient's intentional underdosing of medication regimen for other reason; K59.00 Constipation, unspecified; E87.4 Mixed disorder of acid-base balance; K21.9 Gastro-esophageal reflux disease without esophagitis; G93.41 Metabolic encephalopathy
CPT/HCPCS: 36415; 36600; 71045; 80053; 80069; 80307; 81001; 81025; 82010; 82140; 82436; 82803; 83036; 83605; 83690; 83735; 84133; 84300; 84484; 84703; 85025; 85610; 85730; 86341; 87040; 87081; 93005; 94640; 96361; 96374; 99284; A4649; J1171; J1200; J1644; J1815; J2250; J2405; J2470; J2765; J3010; J3475; J3480; J7120; J7121; J7999; A9270